=== PATIENT | female | born 1945 | race Caucasian/White ===

== ENCOUNTER → 2016-10-27 | Outpatient (CLI) | payer MEDICARE, MEDICAID ==
[~2016-10-27] MED LIST: ALEN10TA2 PO; CRES5TAB PO; DICL13PA TD; DIPH1POW6 XX; METH750T PO; MULTCAP PO; MURO5OIN OU; NEXI40CA PO; REFR1DRO OU; TRIA1CR TOP; WELLTAB38 PO
== END ==
LOC: M HL 10:46
PROVIDERS: ATTEND Hospitalist
DX: R63.6 Underweight (principal); F41.9 Anxiety disorder, unspecified

== ENCOUNTER → 2016-11-09 | Outpatient (CLI) | payer MEDICARE, MEDICAID ==
[~2016-11-09] MED LIST changes: +D5W 1,000 ML IV SCH; +D5W 500 ML ONE; +EPINEPHrine 1MG/10ML SYRINGE 1.5IN As Ordered ONE; +LIDOCAINE 1% MDV 20ML VIAL As Ordered ONE; +LIDOCAINE VISCOUS 2% SOLN 15ML UDC As Ordered ONE; +LR 1,000 ML IV SCH; +MIDAZOLAM INJ 2 MG/2 ML VIAL (J2250) As Ordered ONE; +fentaNYL 100 MCG/2 ML INJECTION (J3010) As Ordered ONE
[2016-11-09 09:50] VITALS: BP 103/63
--- NOTE | 2016-11-09 10:04 | RO ---
DATE OF PROCEDURE: 11/09/2016 PREOPERATIVE DIAGNOSIS: Abnormal CT scan with left lower lobe and right middle lobe abnormalities. POSTOPERATIVE DIAGNOSIS: Abnormal CT scan with left lower lobe and right middle lobe abnormalities, with chronic bronchitis. PROCEDURE: Fiberoptic bronchoscopy with washes and photos. SURGEON: Dr. Karson Maria LITHARGE SUPERVISOR: ANESTHESIA: Conscious sedation with 50 mcg of intravenous of fentanyl and 3 mg of intravenous Versed given sequentially and titrated for effect. Local anesthesia was 2% viscous Xylocaine in the nose, Cetacaine [place] in the pharynx and 1% Xylocaine via the bronchoscope. OPERATIVE FINDINGS: 1. Diffuse changes of chronic bronchitis. 2. Thick tenacious secretions encountered, able to be suctioned clear. 3. Extrinsic compression of the medial segment of the right middle lobe. 4. Extrinsic compression of multiple sub segments left lower lobe. Informed consent was obtained prior to the procedure. PROCEDURE: After the patient identified and the above anesthesia given, the fiberoptic bronchoscope was easily passed via the right nares. Hypopharynx was entered and appeared grossly normal. Thick tenacious secretions were seen to emanate from below the level of the cords. Vocal cords moved well. Trachea was then entered. It widely patent. Perla was sharp and moved well. Both mainstem bronchi widely patent. Right lung entered first. Right mainstem as well as the right upper lobe and bronchus intermedius widely patent. Diffuse changes of chronic bronchitis were noted. The middle lobe had thick tenacious secretions emanated from it. These were able to be suctioned clear. 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 With saline lavage it did open. Thick tenacious secretions were encountered and these were able to be cleared. Attention was then turned to the left. Left mainstem, upper lobe, bronchi widely patent. Again, diffuse changes of chronic bronchitis were noted. Some thick secretions were encountered but easily suctioned clear. The superior segment had a mild fishmouth but easily opened. Multiple sub segments of the lower lobe however, showed extrinsic compression. The mucosa was smooth. These areas did open easily with saline lavage and thick secretions were encountered from them. No obvious focal endobronchial abnormality was identified lending itself to either brush or biopsy. No bleeding was encountered. The scope was then withdrawn and the procedure terminated. Patient taken to recovery area in good and stable condition. Oxygen saturation remained greater than 97% throughout the exam. No immediate complications of conscious sedation were identified.
== END | disposition home or self-care (01) ==
LOC: M OPP 07:56
PROVIDERS: ATTEND Internal Medicine Pulmonary Disease
DX: J42 Unspecified chronic bronchitis (principal); J98.4 Other disorders of lung; J44.9 Chronic obstructive pulmonary disease, unspecified; F17.218 Nicotine dependence, cigarettes, with other nicotine-induced disorders; M19.90 Unspecified osteoarthritis, unspecified site
CPT/HCPCS: 31622; 87070; 87077; 87102; 87116; 87186; 87205; 87206; 88104; J2250; J3010

== ENCOUNTER → 2016-11-16 | Outpatient (REF) | payer MEDICARE, MEDICAID ==
[~2016-11-16] MED LIST changes: -D5W 1,000 ML IV SCH; -D5W 500 ML ONE; -EPINEPHrine 1MG/10ML SYRINGE 1.5IN As Ordered ONE; -LIDOCAINE 1% MDV 20ML VIAL As Ordered ONE; -LIDOCAINE VISCOUS 2% SOLN 15ML UDC As Ordered ONE; -LR 1,000 ML IV SCH; -MIDAZOLAM INJ 2 MG/2 ML VIAL (J2250) As Ordered ONE; -fentaNYL 100 MCG/2 ML INJECTION (J3010) As Ordered ONE
[2016-11-16 19:07] LABS: INR 0.95
== END ==
LOC: M LAB REF 16:50
PROVIDERS: ATTEND Internal Medicine Pulmonary Disease
DX: R91.8 Other nonspecific abnormal finding of lung field (principal); Z79.899 Other long term (current) drug therapy

== ENCOUNTER → 2016-11-29 | Outpatient (CLI) | payer MEDICARE, MEDICAID ==
[~2016-11-29] MED LIST changes: +LIDOCAINE 1% MDV 20ML VIAL As Ordered ONE
--- NOTE | 2016-11-29 12:03 | REP ---
PA CHEST: 11/29/2016. Clinical history: Post lung biopsy. Comparison: CT chest 09/18/2016, CXR 08/26/2016. Findings: An expiratory PA chest performed. Lungs are quite hyperinflated. The retrocardiac left lower lobe mass is noted as on previous exams. Chronic atelectatic or infiltrative change in the right middle lobe and less patchy density in the right upper lobe compared to the previous chest x-ray. I do not see evidence of a pneumothorax or pleural effusion on either side. The advanced bullous emphysematous change, COPD and pulmonary hypertension are as before. Degree of fibrosis as before. Impression: 1. No pneumothorax or pleural effusion. All findings are stable. Signed by Manuel Warren MD 11/29/2016 08:19 P
--- NOTE | 2016-11-29 17:28 | REP ---
CT GUIDED LEFT LOWER LOBE LUNG BIOPSY: The procedure was performed under the direct supervision of Dr. Warren. The patient has a history of a mass like density extending medially to the left paratracheal zone measuring 4.2 cm seen on a previous CT scan performed on 09/18/2016. The risks and benefits of the procedure were explained to the patient and informed consent was obtained. The left lower lobe lung mass was localized using CT guidance. The skin was prepped and draped in a sterile fashion. 1% lidocaine was used as a local anesthetic. Using CT guidance a 19/20-gauge coaxial needle biopsy system was inserted and advanced into the mass. Four core biopsy samples were obtained and sent to the lab. The patient tolerated the procedure well and there were no immediate complications. After the appropriate amount of monitored convalescence the patient was discharged from the department. Reviewed by CHRISTIANO Klein 11/30/2016 04:47 PEdited and Signed by Manuel Warren MD 11/30/2016 05:19 P
== END | disposition home or self-care (01) ==
LOC: M RADPRO 08:07
PROVIDERS: ATTEND Internal Medicine Pulmonary Disease
DX: C34.32 Malignant neoplasm of lower lobe, left bronchus or lung (principal); J44.9 Chronic obstructive pulmonary disease, unspecified; M19.90 Unspecified osteoarthritis, unspecified site; R63.4 Abnormal weight loss; F17.218 Nicotine dependence, cigarettes, with other nicotine-induced disorders; Z79.899 Other long term (current) drug therapy

== ENCOUNTER → 2016-12-06 | Outpatient (CLI) | payer MEDICARE, MEDICAID ==
[~2016-12-06] MED LIST changes: -LIDOCAINE 1% MDV 20ML VIAL As Ordered ONE
--- NOTE | 2016-12-07 09:13 | REP ---
PET/CT: History: Staging moderate to well differentiated adenocarcinoma of the lung , left lower lobe. Comparisons: Chest CT study dated September 18, 2016. TECHNIQUE: 73 minutes following the intravenous injection of a 7.0 mCi dose of F-18 FDG, three-dimensional PET scintigraphy is acquired from the skull base to the proximal thighs. Triplanar noncontrast CT scanning is acquired through the same anatomic range for attenuation correction, and image registration with scan parameters optimized to minimize radiation exposure to the patient. PET scintigraphy and CT datasets were fused and displayed on a workstation with multiplanar and projection display capability. PET/CT Findings: The known lobulated mass associated with bullous or air cyst formation in the left lower lobe shows heterogeneous hypermetabolic uptake. Maximum standard uptake value within this heterogeneous mass is 20.0. Some of the soft tissue components of the lesion are only mildly hypermetabolic, maximum SUV in the range of 3-3.6. The overall dimensions of the lesion are 6.3 cm craniocaudad by 5.1 cm anterior to posterior by 4.5 cm medial to lateral. There is no hilar or mediastinal hypermetabolic abnormal uptake. There is atelectasis which appears to be lobar within the right middle lobe. This is unchanged. No hypermetabolic uptake is seen in the right hilus. No adrenal hypermetabolic uptake is observed. No other pulmonary parenchymal hypermetabolic uptake. There is discernible but non-hypermetabolic uptake in an ill-defined peripheral density in the right upper lobe with maximum SUV value of 1.0. This density is improved in appearance from the September 18, 2016 study. No abnormal hypermetabolic uptake is seen within the abdomen or pelvis. Head and neck soft tissues are unremarkable. Impression: Heterogeneously hypermetabolic uptake in the large lobulated left lower lobe lung mass. No other abnormal hypermetabolic uptake is seen. Signed by Adeel Morgan MD 12/07/2016 10:13 A
== END ==
LOC: M RAD 12:22
PROVIDERS: ATTEND Internal Medicine Pulmonary Disease
DX: C34.31 Malignant neoplasm of lower lobe, right bronchus or lung (principal)
CPT/HCPCS: 78815; A9552

== ENCOUNTER → 2016-12-19 | Outpatient (CLI) | payer MEDICARE, MEDICAID ==
--- NOTE | 2016-12-20 07:31 | RADONC ---
RADIATION ONCOLOGY CONSULTATION NOTE DATE: 12/19/2016 CHART NUMBER: [id number]. DIAGNOSIS: Left lung cancer. STAGE: IIA, [id number]. ECOG PERFORMANCE STATUS: 1. CONSULTATION NOTE: Ms. 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 HISTORY OF PRESENT ILLNESS: The patient was in her usual state of health and has a long history of COPD. Apparently, she has developed some increasing shortness of breath and a CT was done on 09/18/2016, which showed a mass-like density in the left paratracheal zone measuring 4.2 cm. On 11/29/2016, a CT-guided biopsy was undertaken and pathology revealed a well-differentiated adenocarcinoma of the lung. PET scan was done on 12/06/2016 and confirmed hypermetabolic uptake in her left lower lobe mass. There was no evidence of mediastinal hilar adenopathy present. Pulmonary functions were undertaken and she was found to have an FEV-1 of 1.06. Her diffusion capacity was 32%. The patient was deemed not to be a surgical candidate and is now presenting to us to see whether or not external beam radiation therapy will be possible. PAST MEDICAL HISTORY: The patient's past medical history is positive for COPD, emphysema, some seizure-like activity, cataracts, and arthritis. ALLERGIES: The patient has no known drug allergies. SOCIAL HISTORY: The patient has smoked half-a-pack of cigarettes per day for 48 years. She does not abuse alcohol. FAMILY HISTORY: The patient's family history is positive for a sister with uterine cancer. REVIEW OF SYSTEMS: The patient's review of systems is positive for anorexia and weight loss. She has some anxiety and physical limitations secondary weakness. She also has occasional chills. The patient reports that she had a left hip replacement. She has some left rib pain since the biopsy. She denies nausea, vomiting, fevers, night sweats, diplopia, headaches, chest pain, urinary or bowel difficulties, or neurological problems. PHYSICAL EXAMINATION: The patient is a cachectic, chronically ill-appearing white female in no acute distress. HEENT exam is normocephalic, atraumatic. Extraocular movements are intact. There is no palpable cervical, supraclavicular, infraclavicular, axillary, or inguinal lymphadenopathy present. Lungs are clear to auscultation and percussion. Heart has a regular rate and rhythm. Abdomen is benign with no hepatosplenomegaly, masses, or tenderness. Skeletal examination reveals no tenderness to pressure or percussion of the bony skeleton. Extremities reveal no clubbing, cyanosis, or edema. Neurologic exam is grossly intact, as is the remainder of the physical examination. ASSESSMENT: I agree that this patient would not be a candidate for surgery at this point. I have personally reviewed with the patient her PET CT scan. I believe it may be possible to design a radiation field that she may tolerate. I discussed with the patient in detail the potential benefits as well as possible acute and chronic sequelae of external beam radiation therapy. We have discussed logistics of treatment planning, simulation and subsequent fractionated daily radiation treatments. I am scheduling the patient for a differential lung scan for further evaluation of her ability to tolerate treatment. At this point, I cannot make final recommendations as I do not know whether or not she will be able to tolerate these treatments. I have scheduled the patient for a differential lung scan as well as initiation of treatment planning. Once we undertake treatment planning, a dose volume histogram can be generatedm, which will allow us to further analyze her breathing capacity and what can be anticipated as her breathing capacity following completion of therapy. Further recommendations will be made as more information becomes available. I will also coordinate this patient's care with her medical oncologist, Dr. Ramos. Clearly, if we to deliver definitive radiation, she may benefit from some type of systemic treatment. I will of course defer to Dr. Ramos's expertise. cc: MD Monroe Acevedo MD Lawrence Kramer, MD *[facility]
== END ==
LOC: M ONCR 09:05
PROVIDERS: ATTEND Radiology Radiation Oncology
DX: C34.90 Malignant neoplasm of unspecified part of unspecified bronchus or lung (principal)

== ENCOUNTER → 2016-12-25 | Outpatient (CLI) | payer MEDICARE, MEDICAID ==
--- NOTE | 2016-12-25 11:02 | REP ---
CHEST, TWO VIEWS: HISTORY: Lung carcinoma. COMPARISON: 11/29/2016. The lungs are hyperinflated. An increase in interstitial markings is present in the lungs. Bullae are present in upper lobes. A 5 cm mass is present in the left lower lobe. Linear density is present in the right middle lobe consistent with atelectasis or scar. The heart is normal in size. The pulmonary vasculature is normal in appearance. The bony structure is intact. IMPRESSION: 1.COPD 2. 5 cm left lower lobe mass. 3. Right middle lobe atelectasis or scar. Signed by Winston Connolly MD 12/25/2016 11:03 A
--- NOTE | 2016-12-25 11:25 | REP ---
NUCLEAR LUNG DIFFERENTIAL VENTILATION PERFUSION SCAN: Following the intravenous administration of 1 mCi of technetium 99m tagged MAA and the inhalation of 2 mCi of technetium 99m DTPA aerosol, images of the lungs are obtained in the anterior and posterior projections. There are scattered bilateral subsegmental matching ventilation and perfusion defects. Differential counts are obtained in the upper, middle and lower thirds of each lung and the mean perfusion and ventilation is calculated. The mean perfusion of the left lung is 47.7% and of the right lung is 52.3%. Mean ventilation of the left lung is 44.6% and of right lung 55.4%. Signed by Jose Yang MD 12/25/2016 12:58 P
== END ==
LOC: M RAD 09:45
PROVIDERS: ATTEND Radiology Radiation Oncology
DX: C34.90 Malignant neoplasm of unspecified part of unspecified bronchus or lung (principal)
CPT/HCPCS: 71020; 78598; A9540; A9567

== ENCOUNTER 2016-12-27 10:28 | Outpatient (RCR) | payer MEDICARE, MEDICAID ==
--- NOTE | 2016-12-28 07:44 | RADONC ---
RADIATION ONCOLOGY SIMULATION NOTE: DATE: 12/27/2016 Ms. Devlin was taken to the CT scan for CT simulation of her left lung field. CT was accomplished without difficulty or discomfort. Radiation treatment planning is underway and radiation treatments will begin subsequently. An immobilization device was created without difficulty or discomfort. It will be used throughout the course of treatment. I was physically present throughout the course of CT simulation.
== END 2017-01-05 ==
LOC: M ONCR 10:28
PROVIDERS: ATTEND Radiology Radiation Oncology
DX: C34.32 Malignant neoplasm of lower lobe, left bronchus or lung (principal)

== ENCOUNTER → 2016-12-27 | Outpatient (CLI) | payer MEDICARE, MEDICAID | LOC: M RAD 09:42 | PROVIDERS: ATTEND Radiology Radiation Oncology | DX: C34.90 Malignant neoplasm of unspecified part of unspecified bronchus or lung (principal) ==

== ENCOUNTER 2017-01-08 09:08 | Outpatient (RCR) | payer MEDICARE, MEDICAID ==
--- NOTE | 2017-01-09 09:07 | RADONC ---
RADIATION ONCOLOGY PROGRESS NOTE DATE: 01/08/2017 CHART NUMBER: [id number] Ms. Devlin was scheduled to initiate radiation today. Unfortunately we were unable to start her treatments today secondary to machine breakdown. Radiation is scheduled to begin tomorrow.
[2017-01-11] MEDS ORDERED: OXYC1TAB23 PO (16:40)
--- NOTE | 2017-01-16 07:26 | RADONC ---
RADIATION ONCOLOGY PROGRESS NOTE DATE: 01/15/2017 CHART NUMBER: [id number] Ms. Devlin is presently at a dose of 900 cGy to her left lung and is tolerating treatments quite well at this point with no complaints related to her radiation therapy. She is having no increased difficulty swallowing. She does have some loss of appetite since she was given pain medication last week. The patient's review of systems is positive for loss of appetite as well as some discomfort controlled by pain medications. It is otherwise noncontributory. Denies nausea, vomiting, fevers, chills, night sweats, diplopia, headaches, anxiety or depression, anorexia, weight loss, visual disturbances, chest pain, urinary or bowel difficulties, bone pain, or neurological problems. PHYSICAL EXAMINATION: The patient is a cachectic, chronically ill-appearing, white female in no acute distress. Skin over the treated field is in excellent condition with no evidence of radiation change present. The remainder of her physical exam remains unchanged. Ms. Devlin is tolerating treatments quite well and radiation will continue as scheduled. She has been given dietary instructions. [facility]
--- NOTE | 2017-01-23 07:26 | RADONC ---
RADIATION ONCOLOGY PROGRESS NOTE DATE: 01/22/2017 CHART NUMBER: [id number]. PROGRESS NOTE: Ms. Devlin is presently at a dose of 1800 cGy to her left lung and overall is doing fairly well. She is continuing to complain of pain over her biopsy site for which I have given her a prescription of Percocet. She also has difficulty swallowing. REVIEW OF SYSTEMS: The patient's review of systems is positive for discomfort upon swallowing as well as some pain of her ribs. It is otherwise noncontributory. Denies nausea, vomiting, fevers, chills, night sweats, diplopia, headaches, anxiety or depression, anorexia, weight loss, visual disturbances, chest pain, urinary or bowel difficulties, bone pain, or neurological problems. PHYSICAL EXAMINATION: The patient's weight today is down to 85.6 pounds. It is down 1.3 pounds since last week. It is down a total of 2.4 pounds since consultation on 12/19/2016. The skin over the treated field is in good condition with no evidence of moist or dry desquamation. The remainder of the physical exam remains unchanged. Ms. Devlin is tolerating her treatments at this point. We are calling in a prescription for Triple Mix. Radiation will continue in the meantime.
--- NOTE | 2017-01-30 08:47 | RADONC ---
RADIATION ONCOLOGY PROGRESS NOTE DATE: 01/29/2017 CHART NUMBER: [id number] Ms. Devlin is presently just 2700 cGy to her left lung and is tolerating treatments quite well at this point with no complaints related to her radiation therapy. She is having no increased difficulty breathing or swallowing. REVIEW OF SYSTEMS: The patient's review of systems continues to be positive for pain at the site of her needle biopsy. She has no complaints at this time related to her actual radiation. She denies nausea, vomiting, fevers, chills, night sweats, diplopia, headaches, anxiety or depression, anorexia, weight loss, visual disturbances, chest pain, urinary or bowel difficulties, bone pain, or neurological problems. PHYSICAL EXAMINATION: The patient's skin is in good condition with no evidence of moist or dry desquamation. The remainder of her physical exam remains unchanged. Ms. Devlin is tolerating treatments quite well and radiation will continue as scheduled.
== END 2017-02-04 ==
LOC: M ONCR 09:08
PROVIDERS: ATTEND Radiology Radiation Oncology
DX: C34.32 Malignant neoplasm of lower lobe, left bronchus or lung (principal)

== ENCOUNTER → 2017-01-18 | Outpatient (CLI) | payer MEDICARE, MEDICAID ==
[~2017-01-18] MED LIST changes: +OXYC1TAB23 PO
--- NOTE | 2017-01-18 16:23 | REP ---
PA and lateral chest: Comparisons are the PA and lateral chest of 12/25/2016, PA and lateral chest 08/26/2016 and PA and lateral chest of 10/10/2010. Additionally, there is a comparison chest CT of 09/18/2016. The lung lester are hyperinflated with slight inversion of the diaphragms, unchanged from all prior studies, compatible with COPD, however, requiring clinical confirmation. The patient's known left lower lobe lung mass is seen to best advantage on the lateral view and is not significantly changed from 12/25/2016. On the lateral view there is atelectasis anteriorly superimposed over the heart, likely in the right middle lobe, unchanged from 12/25/2016. On the PA view, there appears to be a focal density inferiorly in the right lung, also unchanged from 12/25/2016. There are no pleural effusions. There are no other lung densities. Cardiac size is normal. The kaleigh, mediastinum, bony thorax are otherwise unchanged. Impression: The patient has a known left lower lobe lung mass, unchanged. Increased density inferiorly in the right lung, this could be a mass or atelectasis. On the lateral view there is atelectasis anteriorly likely in the right middle lobe. No other infiltrates are identified. No pleural effusions. There is chronic hyperinflation compatible with COPD. Signed by Jose Em MD 01/18/2017 04:14 P
== END ==
LOC: M RAD 14:23
PROVIDERS: ATTEND Internal Medicine Pulmonary Disease
DX: R06.02 Shortness of breath (principal); R91.8 Other nonspecific abnormal finding of lung field; J44.9 Chronic obstructive pulmonary disease, unspecified

== ENCOUNTER 2017-02-05 11:03 | Outpatient (RCR) | payer MEDICARE, MEDICAID ==
--- NOTE | 2017-02-06 10:05 | RADONC ---
RADIATION ONCOLOGY PROGRESS NOTE DATE: 02/05/2017 CHART NUMBER: [id number] Ms. Devlin is presently at a dose of 3420 cGy to her left lung and is tolerating treatments quite well at this point with no significant difficulties related to her radiation therapy other than some esophagitis. REVIEW OF SYSTEMS: The patient's review of systems is positive for esophagitis, but is otherwise noncontributory. She denies nausea, vomiting, fevers, chills, night sweats, diplopia, headaches, anxiety or depression, anorexia, weight loss, visual disturbances, chest pain, urinary or bowel difficulties, bone pain, or neurological problems. PHYSICAL EXAMINATION: The patient has lost an additional 3.8 pounds over the past week or so. She weighs 84 pounds. This is actually 1.6 pounds less than she was 2 weeks ago. Her skin is in good condition with no evidence of moist or dry desquamation. The remainder of her physical exam remains unchanged. Ms. Devlin is tolerating her treatments fairly well and once again has been given dietary instructions. For now radiation will continue as scheduled.
--- NOTE | 2017-02-13 07:35 | RADONC ---
RADIATION ONCOLOGY PROGRESS NOTE DATE: 02/12/2017 CHART NUMBER: [id number] Ms. Devlin is presently at a dose of 4320 cGy to her left lung and is tolerating treatments quite well at this point with no complaints related to her radiation therapy. She is having no increased difficulty swallowing or shortness of breath. REVIEW OF SYSTEMS: The patient's review of systems is noncontributory. Denies nausea, vomiting, fevers, chills, night sweats, diplopia, headaches, anxiety or depression, anorexia, weight loss, visual disturbances, chest pain, urinary or bowel difficulties, bone pain, or neurological problems. PHYSICAL EXAMINATION: The patient's skin is in good condition with no evidence of moist or dry desquamation. The remainder of physical exam remains unchanged. Ms. Devlin is tolerating treatments quite well and radiation will continue as scheduled.
--- NOTE | 2017-02-20 08:47 | RADONC ---
RADIATION ONCOLOGY PROGRESS NOTE DATE: 02/19/2017 CHART NUMBER: [id number]. PROGRESS NOTE: Ms. Devlin is presently at a dose of 5220 cGy to her left lung and is tolerating treatments quite well at this point with no significant difficulties related to her radiation therapy other than some itching of the skin. REVIEW OF SYSTEMS: The patient's review of systems is positive for skin itchiness but is otherwise noncontributory. Denies nausea, vomiting, fevers, chills, night sweats, diplopia, headaches, anxiety or depression, anorexia, weight loss, visual disturbances, chest pain, urinary or bowel difficulties, bone pain, or neurological problems. PHYSICAL EXAMINATION: The patient skin overall is in good condition but there is a small area of excoriation where the patient has been scratching. The remainder of the physical exam remains unchanged. Ms. Devlin is tolerating treatments quite well. I have instructed her to try some Benadryl cream and to cut her nails shorter and not to scratch. She has also been given some skin covering this. I informed her that is she were to continue scratching like this it may cause an interruption of her treatment.
--- NOTE | 2017-02-27 06:13 | RADONC ---
RADIATION ONCOLOGY PROGRESS NOTE DATE: 02/26/2017 CHART NUMBER: [id number] Ms. Devlin is presently at a dose of 6120 cGy to her left lung and is tolerating treatments quite well at this point with no significant difficulties related to her radiation therapy other than esophagitis and difficulty swallowing. The patient's review of systems is positive for esophagitis but is otherwise largely noncontributory. Denies nausea, vomiting, fevers, chills, night sweats, diplopia, headaches, anxiety or depression, anorexia, weight loss, visual disturbances, chest pain, urinary or bowel difficulties, bone pain, or neurological problems. PHYSICAL EXAMINATION: The patient is a cachectic white female in no acute distress. HEENT: Exam is normocephalic, atraumatic. Extraocular movements are intact. The skin over the treated field shows no evidence of moist or dry desquamation. The remainder of her physical exam remains unchanged. Ms. Devlin is tolerating treatments quite well and radiation will continue as scheduled.
[2017-02-28] MEDS ORDERED: SILV-4 TOP (16:36)
--- NOTE | 2017-03-06 09:59 | RADONC ---
RADIATION ONCOLOGY TREATMENT SUMMARY DATE: 03/06/2017 CHART NUMBER: [id number] DIAGNOSIS: Left lung cancer stage II A, [id number], ECOG performance status 1. TREATMENT SUMMARY: Ms. Devlin is a very pleasant 71-year-old white female with a diagnosis of what appears to be a stage II A, [id number] well-differentiated adenocarcinoma of the left lower lobe who presented to us for consideration of definitive external beam radiation therapy as a therapeutic option. The patient refused chemotherapy. We treated the patient to her primary site for a total dose of 6840 cGy delivered in 38 fractions of 180 cGy each via a 3-D conformal technique with a left lateral ROMANIAN and LPO field. The patient was treated from 01/09/2017 through 01/31/2017 for 38 fractions over 52 elapsed days. A combination of 18 X and 6 X photons were utilized. Ms. Devlin tolerated her treatments quite well with no significant difficulties related to her radiation therapy. The patient was able complete therapy as prescribed. I have scheduled the patient to see me again in 1 month for further followup. She will also continue to be followed by her other physicians as well. cc: MD Monroe Acevedo MD Lawrence Kramer, MD *Muna Prater MD *[facility]
== END 2017-03-07 ==
LOC: M ONCR 11:03
PROVIDERS: ATTEND Radiology Radiation Oncology
DX: C34.32 Malignant neoplasm of lower lobe, left bronchus or lung (principal)

== ENCOUNTER → 2017-04-04 | Outpatient (CLI) | payer MEDICARE, MEDICAID ==
[~2017-04-04] MED LIST changes: +FLUC10TA PO; +SILV-4 TOP
--- NOTE | 2017-04-05 10:34 | RADONC ---
RADIATION ONCOLOGY PROGRESS NOTE: DATE: 04/04/2017 CHART NUMBER: [id number]. DIAGNOSIS: Left lung cancer. STAGE: IIA, S0cL2G6. ECOG PERFORMANCE STATUS: Zero. FOLLOWUP NOTE: Ms. 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 The patient presents today reporting that she is doing quite well with no significant complaints at this time related to her radiation therapy or disease. She has no increased difficulty breathing or swallowing. REVIEW OF SYSTEMS: The patient's review of systems is largely noncontributory. Denies nausea, vomiting, fevers, chills, night sweats, diplopia, headaches, anxiety or depression, anorexia, weight loss, visual disturbances, chest pain, urinary or bowel difficulties, bone pain, or neurological problems. PHYSICAL EXAMINATION: The patient is a well-developed, well-nourished, 71-year-old white female in no acute distress. HEENT exam is normocephalic, atraumatic. Extraocular movements are intact. There is no palpable cervical, supraclavicular, infraclavicular, axillary, or inguinal lymphadenopathy present. Lungs are clear to auscultation and percussion. Heart has a regular rate and rhythm. Abdomen is benign with no hepatosplenomegaly, masses, or tenderness. Skeletal examination reveals no tenderness to pressure or percussion of the bony skeleton. Extremities reveal no clubbing, cyanosis, or edema. Neurologic exam is grossly intact, as is the remainder of the physical examination. ASSESSMENT: Ms. Devlin is clinically stable at this time. She is being seen by Dr. Prater in [place], as well as Dr. Maria. I have therefore scheduled her to see me again in 3 months' time. I have ordered a head CT scan to be done in early May post-treatment to reevaluate her for present state of disease.
== END ==
LOC: M ONCR 14:56
PROVIDERS: ATTEND Radiology Radiation Oncology
DX: C34.32 Malignant neoplasm of lower lobe, left bronchus or lung (principal)

== ENCOUNTER → 2017-05-08 | Outpatient (CLI) | payer MEDICARE, MEDICAID | LOC: M PLARAD 09:20 | PROVIDERS: ATTEND Radiology Radiation Oncology | DX: C34.90 Malignant neoplasm of unspecified part of unspecified bronchus or lung (principal); Z53.9 Procedure and treatment not carried out, unspecified reason ==

== ENCOUNTER → 2017-05-16 | Outpatient (CLI) | payer MEDICARE, MEDICAID ==
--- NOTE | 2017-05-16 17:35 | REP ---
Whole body PET CT scan: Comparison is the whole body PET CT scan dated 12/06/2016 and the most recent CT study of the chest dated 09/18/2016. Whole-body scanning is performed from skull base to the upper thighs. Neck and supraclavicular areas: There are no hypermetabolic foci. Chest: There is a small hypermetabolic focus in the medial basilar segment of the left lower lobe approximately 1 cm in diameter with a standard uptake value of 7.25. Just posterior and inferior to this is a second 1 cm hypermetabolic nodule with a standard uptake value of 3.5. There is non hypermetabolic stranding connecting these two nodules and extending from the superior most nodule to the left hilus, likely fibrosis. The size of these lesions has significantly decreased from the prior study. There are no other hypermetabolic foci in the chest. Abdomen, pelvis and upper thighs: There are no hypermetabolic foci, as previously. Impression: The hypermetabolic foci in the lower lobe of the left lung have decreased in size. There are no other hypermetabolic foci. The study is performed with 10 mCi of F 18 FDG. Signed by Jose Em MD 05/16/2017 05:27 P
== END ==
LOC: M PLARAD 08:47
PROVIDERS: ATTEND Radiology Radiation Oncology
DX: C34.32 Malignant neoplasm of lower lobe, left bronchus or lung (principal)
CPT/HCPCS: 78815; A9552

== ENCOUNTER → 2017-05-28 | Outpatient (CLI) | payer MEDICARE, MEDICAID ==
--- NOTE | 2017-05-28 16:00 | REP ---
Chest x-ray: Two views: History: Short of breath. Comparison chest x-ray: 01/18/2017. Findings: The lungs are hyperinflated consistent with COPD. The irregular density in the left infrahilar region is again noted. It looks somewhat less prominent than on the 01/18/2017. This is consistent with improvement. No pneumothorax is seen. No new infiltrate is seen. Impression: Left lower lobe infrahilar mass lesion appears improved. Signed by Adeel Morgan MD 05/28/2017 05:11 P
== END ==
LOC: M RAD 14:15
PROVIDERS: ATTEND Radiology Radiation Oncology
DX: R06.02 Shortness of breath (principal); R91.8 Other nonspecific abnormal finding of lung field

== ENCOUNTER → 2017-06-06 | Outpatient (REF) | payer MEDICARE, MEDICAID ==
[2017-06-06 15:19] LABS: ANION GAP 7 MEQ/L (8-16); BLOOD UREA NITROGEN 9 MG/DL (7-18); CALCIUM LEVEL 9.5 MG/DL (8.8-10.2); CARBON DIOXIDE LEVEL 33 MEQ/L (21-32); CHLORIDE LEVEL 99 MEQ/L (98-107); CREATININE FOR GFR 0.66 MG/DL (0.55-1.02); GLOMERULAR FILTRATION RATE > 60.0 (>45); GLUCOSE, FASTING 159 MG/DL (80-110); POTASSIUM SERUM 3.9 MEQ/L (3.5-5.1); SODIUM LEVEL 139 MEQ/L (136-145)
== END ==
LOC: M SFHCPLAZ 13:57
PROVIDERS: ATTEND Family Medicine
DX: M54.2 Cervicalgia (principal)

== ENCOUNTER → 2017-06-13 | Outpatient (CLI) | payer MEDICARE, MEDICAID ==
--- NOTE | 2017-06-15 11:13 | RADONC ---
RADIATION ONCOLOGY FOLLOWUP NOTE DATE OF SERVICE: 06/13/2017 CHART NUMBER [id number] DIAGNOSIS: Left lung cancer. STAGE: IIA, G4oA2L3. ECOG PERFORMANCE STATUS: 0. FOLLOWUP NOTE: Ms. 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 Since the patient's last visit, she was seen by Dr. Maria for evaluation of her breathing. He thought it unnecessary for the patient to have oxygen at this point. The patient reports today that she is breathing somewhat better. She overall has gained 2 pounds and feels somewhat better. She continues to have pain, however over her right lateral ribs which she says can be quite severe at times. This has not improved. She also continues to have difficulty swallowing saying that this has not improved either and that food seems to get stuck in the mid esophageal region. She has no other complaints related to her radiation therapy or disease. The patient's review of systems is positive for difficulty swallowing most foods as well as continued rib pain. She does have continued shortness of breath. The patient's review of systems is otherwise noncontributory. She denies nausea, vomiting, fevers, chills, night sweats, diplopia, headaches, anxiety or depression, anorexia, weight loss, visual disturbances, chest pain, urinary or bowel difficulties, bone pain, or neurological problems. PHYSICAL EXAMINATION: The patient is a cachectic, chronically ill-appearing white female in no acute distress. HEENT: Exam is normocephalic, atraumatic. Extraocular movements are intact. There is no palpable cervical, supraclavicular, infraclavicular, axillary or inguinal lymphadenopathy present. Her lungs are generally clear to auscultation and percussion. Heart has regular rate and rhythm. Her abdomen is benign with no hepatosplenomegaly, masses or tenderness. ASSESSMENT: I have ordered a bone scan to evaluate the patient's ribs. In addition, I have scheduled her for an appointment at the pain clinic. Perhaps they can be of some help to her. I have set her up to see me again in 2 months for further followup as well. In addition, I am sending in a prescription for Diflucan in case her difficulty swallowing is secondary to thrush. I do not appreciate thrush on the patient's oral cavity examination. She will continue her close followup and management by her other physicians in the meantime. cc: Atiya Ramos MD, FACP MD Karson Rollins MD
== END ==
LOC: M ONCR 13:08
PROVIDERS: ATTEND Radiology Radiation Oncology
DX: C34.32 Malignant neoplasm of lower lobe, left bronchus or lung (principal)

== ENCOUNTER → 2017-06-19 | Outpatient (CLI) | payer MEDICARE, MEDICAID ==
--- NOTE | 2017-06-19 15:08 | REP ---
Whole body radionuclide bone scan: Comparison is the three-phase bone scan of the hips performed on 12/12/2012. Whole-body scanning is performed from the calvarium to the feet. There is normal uptake in the calvarium, shoulders, ribs and upper extremities. There is increased uptake in two thoracic vertebral bodies at the approximate T8 and T10 levels. Upon review of the most recent PA and lateral plain film study of the chest, there are no thoracic vertebral body compression deformities. There is no other increased uptake in the spine. There is no abnormal uptake in the pelvis or lower extremities. It is incidentally noted that the right kidney is lower in the abdomen than the left, likely congenital variation. Impression: Focal increased uptake in two thoracic vertebral bodies, likely T8 and T10. There are no vertebral body compression deformities on the most recent plain film PA and lateral study of the chest dated 05/28/2017. Otherwise, negative radionuclide bone scan. The study is performed after intravenous infusion of 21.6 millicuries of MDP radiolabeled with technetium-99m Signed by Jose Em MD 06/19/2017 03:00 P
== END ==
LOC: M RAD 10:29
PROVIDERS: ATTEND Radiology Radiation Oncology
DX: R07.81 Pleurodynia (principal)
CPT/HCPCS: 78306; A9503

== ENCOUNTER → 2017-06-25 | Outpatient (CLI) | payer MEDICARE, MEDICAID ==
--- NOTE | 2017-06-25 14:53 | REP ---
MRI thoracic spine without and with IV gadolinium: History: History of mid back pain and rib pain. History of lung carcinoma. Comparison bone scan June 19, 2017. Comparison PET-CT study May 16, 2017. Gadolinium enhancement dose is 7.5 mL of intravenous ProHance. Technique: Axial and sagittal imaging planes were utilized. T1 and T2-weighted scans were obtained with and without fat saturation and following gadolinium enhancement. MRI findings: Evidence of osteoporotic collapse of the superior endplate of the T8 and the T10 vertebral bodies with linear low T1 low T2 signal intensity fracture line and surrounding low T1 high T2 marrow edema. Contrast enhancement is seen in the vertebral bodies at these two levels. There is approximately 10% loss of vertebral body height at each of these levels. No paravertebral soft-tissue mass is seen. No epidural disease is seen. No cord compression is seen. Thoracic cord is normal in coarse, caliber and signal intensity. There is no MR evidence to suggest skeletal metastatic disease in the thoracic spine. No thoracic disc herniation or neural foraminal lesion is seen. Impression: No cord compressive lesion is seen. Findings compatible with osteoporotic wedge compression fracture deformities at T8 and T10. No other abnormal gadolinium enhancement is seen. Signed by Adeel Morgan MD 06/25/2017 04:30 P
== END ==
LOC: M RAD 11:59
PROVIDERS: ATTEND Radiology Radiation Oncology
DX: R07.81 Pleurodynia (principal); Z85.118 Personal history of other malignant neoplasm of bronchus and lung
CPT/HCPCS: 72157; A9576

== ENCOUNTER → 2017-08-15 | Outpatient (CLI) | payer MEDICARE, MEDICAID ==
--- NOTE | 2017-08-17 16:38 | RADONC ---
RADIATION ONCOLOGY FOLLOWUP NOTE DATE: 08/15/2017 CHART NUMBER: [id number]. DIAGNOSIS: Left lung cancer. STAGE: IIA, X5wM0P6. ECOG PERFORMANCE STATUS: 1. FOLLOWUP NOTE: Ms. Devlin is a very pleasant, 71-year-old white female with the diagnosis of a stage IIA, T2bN0M well-differentiated adenocarcinoma of the left upper lobe who is presenting to us today for routine followup visit 5 months post completion of external beam radiation therapy. The patient presents today reporting that she continues to have shortness of breath. She is obtaining a walker with a seat to assist with her shortness of breath so that she can sit down. She also has continued right-sided rib pain. The previous pain was on the left side in the same area. We had done an MRI of that region on 06/25/2017, as well as a bone scan, and found that she had compression fracture deformities at T8 and T10. There is no evidence of malignancy, however. . The patient has a cough as well. She is scheduled to see her labor standards director, Dr. Maria, in 4 weeks or so as well as her medical oncologist, Dr. Gregory. She has no other complaints at this time related to her radiation therapy or disease. Her review of systems is negative for nausea, vomiting, fevers, chills, night sweats, diplopia, headaches, anxiety or depression, visual disturbances, urinary or bowel difficulties or neurological problems. PHYSICAL EXAMINATION: The patient is a cachectic, chronically ill-appearing white female who now weighs 81.6 pounds. This is actually down 3-1/2 pounds since her last visit in June. Her HEENT exam is normocephalic, atraumatic. Extraocular movements are intact. There is no palpable cervical, supraclavicular, infraclavicular or axillary lymphadenopathy present. Her lungs in general are clear to auscultation and percussion, with distant breath sounds bilaterally. Her heart has regular rate and rhythm. Her abdomen is benign with no hepatosplenomegaly, masses or tenderness. Skeletal examination reveals no tenderness to pressure percussion of the bony skeleton. ASSESSMENT: The patient looks clinically like she is not doing well. I am concerned with her overall weakness and continued weight loss. I have concerns also with her increasing shortness of breath. I have therefore ordered a new CT scan to be undertaken to evaluate where we are at this point. In addition, the patient has been given dietary instructions. Pending the results of her CT scan, further recommendations will be made as indicated. Once again, in the next few weeks she will seeing both her labor standards director and her medical oncologist. She reports that the labor standards director said that she does not require any oxygen at this point and I need to defer to his expertise. I am concerned, however that her limited breathing abilities is causing her difficulty walking for any extended distance without having to sit down. Once again, we will continue to follow this patient closely. I have ordered a new CT scan to be undertaken. She will also continue be followed by Dr. Gregory, her medical oncologist as well as Dr. Maria, her labor standards director. cc: MD Monroe Gurrola MD Lawrence Kramer, MD MTDD
== END ==
LOC: M ONCR 14:05
PROVIDERS: ATTEND Radiology Radiation Oncology
DX: C34.32 Malignant neoplasm of lower lobe, left bronchus or lung (principal)

== ENCOUNTER → 2017-08-20 | Outpatient (CLI) | payer MEDICARE, MEDICAID ==
[2017-08-20 14:31] LABS: BLOOD UREA NITROGEN 6 MG/DL (7-18); CREATININE FOR GFR 0.61 MG/DL (0.55-1.02); GLOMERULAR FILTRATION RATE > 60.0 (>45)
== END ==
LOC: M LAB 13:46
PROVIDERS: ATTEND Radiology Radiation Oncology
DX: C34.32 Malignant neoplasm of lower lobe, left bronchus or lung (principal)

== ENCOUNTER → 2017-08-22 | Outpatient (CLI) | payer MEDICARE, MEDICAID ==
[~2017-08-22] MED LIST changes: +ISOVUE-370 76% 100ML VIAL (Q9967) As Ordered ONE
== END ==
LOC: M RAD 15:35
PROVIDERS: ATTEND Radiology Radiation Oncology
DX: C34.90 Malignant neoplasm of unspecified part of unspecified bronchus or lung (principal)
CPT/HCPCS: 71260; Q9967

== ENCOUNTER → 2017-11-21 | Outpatient (CLI) | payer MEDICARE, MEDICAID ==
[2017-11-21 15:20] LABS: BLOOD UREA NITROGEN 7 MG/DL (7-18)
[2017-11-21 15:20] LABS: CREATININE FOR GFR 0.61 MG/DL (0.55-1.30); GLOMERULAR FILTRATION RATE > 60.0 (>45)
== END ==
LOC: M ONCR 13:25
DX: C34.32 Malignant neoplasm of lower lobe, left bronchus or lung (principal)
CPT/HCPCS: 82565

== ENCOUNTER → 2017-12-18 | Outpatient (CLI) | payer MEDICARE, MEDICAID ==
[~2017-12-18] MED LIST changes: -ALEN10TA2 PO; -CRES5TAB PO; -DICL13PA TD; -DIPH1POW6 XX; -FLUC10TA PO; +ISOVUE-370 76% 100ML VIAL (Q9967) As Ordered; -ISOVUE-370 76% 100ML VIAL (Q9967) As Ordered ONE; -METH750T PO; -MULTCAP PO; -MURO5OIN OU; -NEXI40CA PO; -OXYC1TAB23 PO; -REFR1DRO OU; -SILV-4 TOP; -TRIA1CR TOP; -WELLTAB38 PO
== END ==
LOC: M RAD 08:29
DX: J44.9 Chronic obstructive pulmonary disease, unspecified (principal); R93.7 Abnormal findings on diagnostic imaging of other parts of musculoskeletal system
CPT/HCPCS: Q9967

== ENCOUNTER → 2017-12-24 | Outpatient (CLI) | payer MEDICARE, MEDICAID ==
[~2017-12-24] MED LIST changes: -ISOVUE-370 76% 100ML VIAL (Q9967) As Ordered; +PROHANCE 279.3MG/ML 5ML VIAL (A9576) As Ordered
== END ==
LOC: M RAD 13:10
DX: C34.90 Malignant neoplasm of unspecified part of unspecified bronchus or lung (principal); G95.0 Syringomyelia and syringobulbia
CPT/HCPCS: A9576

== ENCOUNTER → 2017-12-26 | Outpatient (CLI) | payer MEDICARE, MEDICAID | LOC: M ONCR 13:04 | DX: C34.32 Malignant neoplasm of lower lobe, left bronchus or lung (principal) | CPT/HCPCS: G0463 ==

== ENCOUNTER → 2018-02-20 | Outpatient (CLI) | payer MEDICARE, MEDICAID | LOC: M ONCR 13:00 | DX: C34.32 Malignant neoplasm of lower lobe, left bronchus or lung (principal) | CPT/HCPCS: G0463 ==

== ENCOUNTER → 2018-05-01 | Outpatient (CLI) | payer MEDICARE, MEDICAID | LOC: M LRY 14:06 | DX: J98.4 Other disorders of lung (principal); R42 Dizziness and giddiness | CPT/HCPCS: 71046; 81002 ==

== ENCOUNTER → 2018-05-22 | Outpatient (CLI) | payer MEDICARE, MEDICAID | LOC: M ONCR 10:52 | DX: Z08 Encounter for follow-up examination after completed treatment for malignant neoplasm (principal); Z85.118 Personal history of other malignant neoplasm of bronchus and lung; Z82.3 Family history of stroke | CPT/HCPCS: G0463 ==

== ENCOUNTER → 2018-08-23 | Outpatient (CLI) | payer MEDICARE, MEDICAID | LOC: M RAD 14:40 | DX: C34.92 Malignant neoplasm of unspecified part of left bronchus or lung (principal); J01.00 Acute maxillary sinusitis, unspecified; I73.9 Peripheral vascular disease, unspecified; R53.1 Weakness; R26.2 Difficulty in walking, not elsewhere classified | CPT/HCPCS: 70551 ==

== ENCOUNTER → 2018-09-20 | Outpatient (CLI) | payer MEDICARE, MEDICAID ==
[~2018-09-20] MED LIST changes: +ALEN10TA2 PO; +CRES5TAB PO; +DICL13PA TD; +DIPH1POW6 XX; +FLUC10TA PO; +METH750T PO; +MULTCAP PO; +MURO5OIN OU; +NEXI40CA PO; +OXYC1TAB23 PO; -PROHANCE 279.3MG/ML 5ML VIAL (A9576) As Ordered; +REFR1DRO OU; +SILV-4 TOP; +TRIA1CR TOP; +WELLTAB38 PO
--- NOTE | 2018-09-20 14:52 | REP ---
LEFT FOOT, FOUR VIEWS: HISTORY: Pain. The patient is status post amputation of the tuft of the distal phalange of the 1st digit. There is no acute fracture or dislocation. There is narrowing of the 1st metatarsophalangeal joint space. The remaining joint spaces are normal in appearance. IMPRESSION: There is no acute fracture or dislocation. Electronically Signed by Winston Connolly MD 09/20/2018 02:55 P
--- NOTE | 2018-09-20 14:58 | REP ---
Left ankle series: Four views. History: Acute left ankle pain. Comparison left foot radiographs are from this date. Findings: There is diffuse osteopenia. Anterolateral soft tissue swelling is seen. There is a avulsion chip fracture visible on oblique radiograph of the ankle from the anterolateral aspect of the tibia. No other fractures seen. Impression: Anterolateral tibial avulsion fracture. Electronically Signed by Adeel Morgan MD 09/20/2018 04:58 P
--- NOTE | 2018-09-20 14:59 | REP ---
Left knee series: Six views. History: Acute pain in the left knee. Findings: Multiple views of the left knee demonstrate diffuse osteopenia. There is some vascular calcification. There is no evidence of fracture. Chondrocalcinosis is noted. No evidence of joint effusion. Impression: Chondrocalcinosis and diffuse osteoporosis. No acute bony abnormality. Electronically Signed by Adeel Morgan MD 09/20/2018 02:50 P
== END ==
LOC: M LRY 14:08
PROVIDERS: ATTEND Nurse Practitioner Family
DX: S82.302A Unspecified fracture of lower end of left tibia, initial encounter for closed fracture (principal); M85.872 Other specified disorders of bone density and structure, left ankle and foot; M79.89 Other specified soft tissue disorders; M11.262 Other chondrocalcinosis, left knee; M81.0 Age-related osteoporosis without current pathological fracture; M25.572 Pain in left ankle and joints of left foot; M79.672 Pain in left foot; M25.562 Pain in left knee; W19.XXXA Unspecified fall, initial encounter; Y92.009 Unspecified place in unspecified non-institutional (private) residence as the place of occurrence of the external cause
CPT/HCPCS: 29515; 73564; 73610; 73630; G0463

== ENCOUNTER → 2018-09-24 | Outpatient (CLI) | payer MEDICARE, MEDICAID ==
[2018-09-24 21:06] LABS: BLOOD UREA NITROGEN 8 MG/DL (7-18); CREATININE FOR GFR 0.68 MG/DL (0.55-1.30); GLOMERULAR FILTRATION RATE > 60.0 (>39)
== END ==
LOC: M LRY 14:06
PROVIDERS: ATTEND Neurological Surgery
DX: D49.6 Neoplasm of unspecified behavior of brain (principal); Z13.89 Encounter for screening for other disorder

== ENCOUNTER 2018-12-16 11:38 | Emergency (ER) | payer MEDICARE, MEDICAID ==
[~2018-12-16] VITALS: Ht 167.6 cm; Wt 45.9 kg
[2018-12-16] MEDS ORDERED: REFR1DRO8 (11:48)
--- NOTE | 2018-12-16 12:23 | REP ---
LEFT SHOULDER, THREE VIEWS: HISTORY: Dislocation. There is no acute fracture. There is anterior dislocation of the head of the humerus. There is moderate narrowing of the acromioclavicular joint space. IMPRESSION: Anterior dislocation of the head of the humerus. Electronically Signed by Winston Connolly MD 12/16/2018 12:27 P
[2018-12-16] MEDS ORDERED: BRIM2OPD (12:42)
[2018-12-16] MEDS ORDERED: BRIM1OPD (12:42)
[2018-12-16] MEDS ORDERED: REST0.05 (12:42)
[2018-12-16] MEDS ORDERED: AZOP0.2S (12:42)
[2018-12-16] MEDS ORDERED: DEXA4TA (12:42)
[2018-12-16] MEDS ORDERED: VITA2000 (12:42)
[2018-12-16] MEDS ORDERED: ANORO (12:42)
[2018-12-16] MEDS ORDERED: OMEP20CA3 (12:42)
[2018-12-16] MEDS ORDERED: ONDANSETRON 4MG/2ML VIAL (J2405) IV ONE (13:00)
[2018-12-16] MEDS ORDERED: fentaNYL 100 MCG/2 ML INJECTION (J3010) IV ONE (13:00)
[2018-12-16 17:53] VITALS: BP 127/91
--- NOTE | 2018-12-16 19:03 | REP ---
LEFT SHOULDER, TWO VIEWS: HISTORY: Postreduction. COMPARISON: 11:54 am 12/16/2018. The patient is status-post reduction of a humeral head dislocation. There is no acute fracture or dislocation. The joint spaces are normal in appearance. IMPRESSION: The patient is status-post reduction of a humeral head dislocation. There is anatomic alignment. Electronically Signed by Winston Connolly MD 12/16/2018 07:20 P
--- NOTE | 2018-12-17 10:19 | CR ---
DATE OF CONSULTATION: 12/16/2018 DATE OF PROCEDURE: 12/16/2018 INDICATION: Left shoulder dislocation. HISTORY OF PRESENT ILLNESS: Maren is a 73-year-old female with a complicated medical history. Unfortunately, she has metastatic cancer with what I believe is a metastatic brain lesion rather than a primary brain tumor. I am under the impression that she developed left-sided hemiparesis due to the metastatic lesion rather than a procedure that she had a few months ago, which was either at targeted radiation or an actual surgery to remove that lesion. Regardless, she has no active motor function in her left arm or left leg. She recently had an ankle fracture. She has had multiple falls and then she fell a week ago and injured her left shoulder. She did not tell anyone until December 16. She then informed her that she had fallen and her shoulder looked like it was dislocated. She does have a history of a left open rotator cuff repair surgery about 15 years ago, and to be clear the patient and acknowledged she had no active shoulder motion prior to the fall a week ago. The patient interestingly has intact sensation to light touch but no sensation of pain in her left arm. For the patient's full past medical history, past surgical history, medications, allergies, social history and review of systems please see the emergency room intake form. PHYSICAL EXAMINATION: Physical exam reveals an elderly female who is cachectic. She is alert and oriented times three. Appropriate mood, pleasant affect. Cardiovascular: 2+ radial pulse. Pulmonary: Nonlabored breathing. Skin in the left shoulder reveals a healed prior rotator cuff repair incision. Musculoskeletal: The patient has severe muscle wasting diffusely. She has no active range of motion in her hand elbow or shoulder. On gross inspection there does appear to be an anterior dislocation of the glenohumeral joint. On inspection and palpation of the right shoulder, there appears to be some anterior / superior humeral head escape but no gross dislocation. The patient has painless shoulder range of motion passively. Sensation light touch axillary, median, radial, ulnar nerves intact. X-rays of the left shoulder but not an axillary reveal an anterior glenohumeral dislocation. No obvious fractures. ASSESSMENT/PLAN: Maren is a 73-year-old female with a week old left shoulder anterior dislocation. The ER physician was uncomfortable having her sedated in the ER due to her chronic obstructive pulmonary disease (COPD) and poor medical status. My initial plan was to bring her to the operating room for closed reduction. However, after discussing with the patient that she did not have any pain in the arm, I asked for permission a do closed reduction in the ER and she agreed. The risks and benefits of a closed reduction of the left shoulder were discussed with her and written informed consent was obtained. PROCEDURE: No anesthesia was required. The patient's medical record number, name and date of were confirmed. Then a time-out. I then applied some gentle counter traction to the upper arm, taking great care as she does have fragile skin and then primarily manually applied an anterior to posterior vector to the humeral head and the humeral head was noted to be freely mobile. I was able to subluxate and reduce the humeral head at will and the patient had no pain. There is no clunking. With the shoulder successfully reduced, I then had portable x-ray obtained. I held for an axillary view and this confirmed a concentric glenohumeral dislocation. This completed the procedure. I explained to the patient and that she likely has a retear of her prior rotator cuff repair and that she has an unstable shoulder but there are no surgical options at this point. She has no active motor function in that arm. She did inform me that her radiation oncologist thought that there was a chance she could recover some use of the arm in the future and if that were the case she may benefit from being in a sling for 2 weeks to allow some of soft tissues to scar in but ultimately whether it redislocates or not it is unlikely to have a large impact on her function in the absence of any active motion. The patient and understand this and they were glad we could do this in the ER as opposed to in the OR. The patient was provided with a sling. I only want her using it for 2 weeks. She does not need to use it at all times. She already scheduled a followup in my office for followup on an ankle fracture. We can discuss the shoulder at that time. If she wants to be seen earlier for the shoulder, we would be happy to accommodate her. All questions were answered. She agrees with the plan.
== END 2018-12-16 18:14 | disposition home or self-care (01) ==
LOC: M ED 11:38
DX: S43.005A Unspecified dislocation of left shoulder joint, initial encounter (principal); W19.XXXA Unspecified fall, initial encounter; Y92.019 Unspecified place in single-family (private) house as the place of occurrence of the external cause
CPT/HCPCS: 23650; 73030; 96374; 96375; 99284; J3010

== ENCOUNTER → 2019-01-01 | Outpatient (CLI) | payer MEDICARE, MEDICAID ==
[~2019-01-01] MED LIST changes: +ANORO; +AZOP0.2S; +BRIM1OPD; +BRIM2OPD; +DEXA4TA; +OMEP20CA3; +REFR1DRO8; +REST0.05; +VITA2000
--- NOTE | 2019-01-02 14:38 | RADONC ---
RADIATION ONCOLOGY FOLLOWUP NOTE DATE OF SERVICE: 01/01/2019 CHART NUMBER: [id number] DIAGNOSIS: Left lung cancer. STAGE: Stage II A, O1aN7P4. ECOG PERFORMANCE STATUS: 4. FOLLOWUP NOTE: Ms. Devlin is a very pleasant 73-year-old white female with the diagnosis of metastatic well-differentiated adenocarcinoma of the left upper lobe who is presenting to us today for followup visit 1 year and 10 months post completion of external beam radiation therapy to her lung. Since the patient was seen by us, she underwent gamma knife radiosurgery for a brain metastasis in [place]. We received a phone call from the patient's physician in [place] asking if she could have her routine follow-ups done here. They have recommended an MRI be undertaken in approximately 2 to 3 months. She was just seen down there a few days ago. In addition, the patient is continuing her followup with Dr. Karen Gonzalez in [place] every 3 months. Her primary care doctor is seeing her as well. The patient's review of systems at this time is positive for paralysis of her left side, both her arm and her leg. She is having no new significant pain but continues to have some pain over her rib cage, which is largely unchanged. The patient's review of systems is otherwise positive, of course, for her physical limitations. She denies nausea, vomiting, fevers, chills, night sweats, diplopia, headaches, anxiety or depression, anorexia, urinary or bowel difficulties. PHYSICAL EXAMINATION The patient is presenting to me in a wheelchair. HEENT: Normocephalic, atraumatic. Extraocular movements are intact. There is no palpable cervical, supraclavicular, infraclavicular or axillary lymphadenopathy present. Lungs are clear to auscultation and percussion. Heart has regular rate and rhythm. She is paralyzed on the left side. ASSESSMENT: I am very familiar with this patient and we are more than glad to see her here in followup and order routine MRIs every 3 months or so. I have set her up for a followup visit in our office in three months' time. In addition, the patient will continue her followup with her medical oncologist, as well as Dr. Fernandes, her primary care doctor. The patient has been instructed to contact me if she has any new symptoms or any problems whatsoever. She has not only my office number by my cell phone number and we are available to her at anytime. Considering her difficulty with mobility and transportation, I will not drag her in here more frequently than is necessary at this point. Thank you for allowing us to participate in the care of this very pleasant woman. I will keep you informed of any developments as they occur. As always, warm regards, Jose Diaz MD cc: MD Flaco Gurrola MD Brogan Schoeneman,
== END ==
LOC: M ONCR 10:55
PROVIDERS: ATTEND Radiology Radiation Oncology
DX: C34.32 Malignant neoplasm of lower lobe, left bronchus or lung (principal)

== ENCOUNTER → 2019-01-01 | Outpatient (CLI) | payer MEDICAID, MEDICARE ==
--- NOTE | 2019-01-01 14:09 | REP ---
Clinical: Cough and shortness of breath. Technique: PA and lateral. Comparison: 05/01/2018. Findings: Mediastinum and cardiac silhouette are stable and within normal limits. Diffuse chronic interstitial changes are appreciated. Mild right basilar atelectasis is suggested. No effusion. No pneumothorax. Skeletal structures demonstrate osteopenia and degenerative changes. Impression: Chronic changes with superimposed right basilar atelectasis. Electronically Signed by Norris Licea MD 01/01/2019 02:01 P
== END ==
LOC: M LAB 11:39
PROVIDERS: ATTEND Family Medicine
DX: J98.11 Atelectasis (principal); R91.8 Other nonspecific abnormal finding of lung field; R06.02 Shortness of breath

== ENCOUNTER → 2019-01-28 | Outpatient (CLI) | payer MEDICARE, MEDICAID ==
[~2019-01-28] MED LIST changes: +TRIA0.1C60 TOP; -TRIA1CR TOP
[2019-01-28 13:23] LABS: BLOOD UREA NITROGEN 13 MG/DL (7-18); CREATININE FOR GFR 0.42 MG/DL (0.55-1.30); GLOMERULAR FILTRATION RATE > 60.0 (>39)
== END ==
LOC: M LAB 12:13
PROVIDERS: ATTEND Radiology Radiation Oncology
DX: C34.90 Malignant neoplasm of unspecified part of unspecified bronchus or lung (principal)

== ENCOUNTER → 2019-02-04 | Outpatient (CLI) | payer MEDICARE, MEDICAID ==
[~2019-02-04] MED LIST changes: +PROHANCE 279.3MG/ML 5ML VIAL (A9576) As Ordered ONE
--- NOTE | 2019-02-04 12:42 | REP ---
MR BRAIN WITHOUT AND WITH CONTRAST: HISTORY: Lung carcinoma. CONTRAST: ProHance 9 mL. COMPARISON: 08/23/2018. A mixed signal intensity mass on T1- and T2-weighted images is present in the right thalamus. The mass contains chronic hemorrhagic components. There is ring-enhancement with contrast. The mass measures 2.2 cm in transverse x 1.5 cm in AP x 2 cm in cephalocaudal dimensions. The mass is slightly increased in size compared to the previous study. A small amount of surrounding edema is present. This is decreased compared to the previous study. There is no midline shift. Areas of increased signal intensity on T2-weighted images are present in the periventricular white matter and hermila. This represent small vessel ischemic disease. There is no acute intraparenchymal hemorrhage, infarct or midline shift. The ventricular system and cortical sulci are dilated consistent with mild volume loss. There is no extracerebral collection. Mucosal thickening is present in the right maxillary sinus. IMPRESSION: 1. There has been a slight increase in size of the hemorrhagic metastasis present in the right thalamus. A small amount of surrounding edema is present that is decreased compared to the previous study. There is no midline shift. 2. Small vessel ischemic disease. 3. Mild volume loss. Electronically Signed by Winston Connolly MD 02/04/2019 01:01 P
== END ==
LOC: M RAD 09:53
PROVIDERS: ATTEND Radiology Radiation Oncology
DX: C79.31 Secondary malignant neoplasm of brain (principal); I67.82 Cerebral ischemia; M19.072 Primary osteoarthritis, left ankle and foot; M25.572 Pain in left ankle and joints of left foot; M79.672 Pain in left foot
CPT/HCPCS: 70553; 73610; 73630; A9576

== ENCOUNTER → 2019-02-04 | Outpatient (CLI) | payer MEDICARE, MEDICAID ==
[~2019-02-04] MED LIST changes: -PROHANCE 279.3MG/ML 5ML VIAL (A9576) As Ordered ONE
--- NOTE | 2019-02-04 14:05 | REP ---
LEFT ANKLE, THREE VIEWS: HISTORY: Pain. COMPARISON: 09/20/2018 There is no acute fracture or dislocation. The joint space is normal in appearance. Soft tissue swelling is present. IMPRESSION: There is no acute fracture or dislocation. Electronically Signed by Winston Connolly MD 02/04/2019 02:16 P
--- NOTE | 2019-02-04 14:22 | REP ---
LEFT FOOT, THREE VIEWS: HISTORY: Pain. The patient is status post amputation of the tuft of the distal phalange of the 1st digit. There is no acute fracture or dislocation. There is narrowing of the 1st metatarsophalangeal joint space. The remaining joint spaces are normal in appearance. IMPRESSION: Degenerative change as described above. Electronically Signed by Winston Connolly MD 02/04/2019 02:26 P
== END ==
LOC: M RAD 11:43
PROVIDERS: ATTEND Family Medicine
DX: M19.072 Primary osteoarthritis, left ankle and foot (principal); M25.572 Pain in left ankle and joints of left foot; M79.672 Pain in left foot

== ENCOUNTER 2019-02-09 13:46 | Emergency (ER) | payer MEDICARE, MEDICAID ==
[~2019-02-09] VITALS: Ht 167.6 cm; Wt 45.5 kg
[2019-02-09] MEDS ORDERED: PROAAER10 INH (14:37)
[2019-02-09] MEDS ORDERED: TRAM1CAP15 PO (14:37)
[2019-02-09] MEDS ORDERED: AZEL0.05 OU (14:37)
[2019-02-09] MEDS ORDERED: D32000CA PO (14:37)
[2019-02-09] MEDS ORDERED: ANOR1AER PO (14:37)
[2019-02-09] MEDS ORDERED: traMADol 50 MG TAB PO ONE (15:30)
[2019-02-09 16:35] VITALS: BP 102/56
== END 2019-02-09 16:37 | disposition home or self-care (01) ==
LOC: M ED 13:46
DX: L89.320 Pressure ulcer of left buttock, unstageable (principal); C34.90 Malignant neoplasm of unspecified part of unspecified bronchus or lung; C71.9 Malignant neoplasm of brain, unspecified; Z79.899 Other long term (current) drug therapy; Z88.5 Allergy status to narcotic agent; Z88.8 Allergy status to other drugs, medicaments and biological substances; Z91.040 Latex allergy status; Z87.891 Personal history of nicotine dependence

== ENCOUNTER → 2019-03-26 | Outpatient (CLI) | payer MEDICARE, MEDICAID ==
[~2019-03-26] MED LIST changes: +ANOR1AER PO; +AZEL0.05 OU; +D32000CA PO; +PROAAER10 INH; +TRAM1CAP15 PO
--- NOTE | 2019-03-28 07:50 | RADONC ---
RADIATION ONCOLOGY FOLLOWUP NOTE: DATE OF SERVICE: 03/26/2019 CHART NUMBER: [id number] DIAGNOSIS: Left lung cancer. STAGE: II A, T2b, N0, M0, ECOG PERFORMANCE STATUS: 4. Ms. 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 The patient has been followed and managed by her outside physicians at [facility] for her brain metastasis and her medical oncologist in [place] for her overall disease management. Apparently, at this point the patient is complaining of difficulty with transportation and other issues and wishes to have her management be centralized through our office. She is now presenting asking if I could follow her closely for that purpose. REVIEW OF SYSTEMS: The patient's review of systems is positive for her new paralysis of her left side. She is presenting in a wheelchair. Other than that her review of systems is basically noncontributory. She says she is having no pain at this time. She is having no breathing difficulties at this time. She reports that her pneumonia has resolved and she is having no shortness of breath. Her review of systems is noncontributory except for the neurological problems. She denies nausea, vomiting, fevers, chills, night sweats, diplopia, headaches, anxiety or depression, anorexia, weight loss, visual disturbances, chest pain, urinary or bowel difficulties, bone pain, or neurological problems. PHYSICAL EXAMINATION: The patient is a chronically ill-appearing white female in no acute distress who is presenting in a wheelchair. HEENT: Exam is normocephalic, atraumatic. Extraocular movements are intact. There is no palpable cervical, supraclavicular, infraclavicular, axillary or inguinal lymphadenopathy present. Lungs are clear to auscultation and percussion. Heart has regular rate and rhythm. She is in a wheelchair with paralysis of her left side. There is no tenderness over her bony skeleton to pressure percussion. ASSESSMENT: The patient is clinically stable at this point. She has not had recent CT scans and I have therefore schedule new CT scans of the chest, abdomen and pelvis. She is complaining of some low back pain, however. Upon further questioning I have ordered a bone scan to evaluate that. I have scheduled the patient to see me again in 1 month for further followup. At this time, her recent MRIs showed slight progression of her brain metastasis over a 5-6- months period. This is causing her no problems at the present time and we will continue to follow her for that and refer her back to her radiation oncologists at [facility] if she wishes to seek any subsequent treatment. cc: MD Flaco Gurrola MD Brogan Schoeneman, DO
== END ==
LOC: M ONCR 11:01
PROVIDERS: ATTEND Radiology Radiation Oncology
DX: C34.32 Malignant neoplasm of lower lobe, left bronchus or lung (principal); Z92.3 Personal history of irradiation

== ENCOUNTER → 2019-04-18 | Outpatient (CLI) | payer MEDICARE, MEDICAID ==
[~2019-04-18] MED LIST changes: +ALPR0.25 PO; +AZIT500T2 PO; +AZOP0.2S OS; +BETA0.5S9 OS; +BRIM2OPD OD; +BRIM2OPD OS; +CEFD1CAP8 PO; -DEXA4TA; +DEXA4TA PO; +FURO20TA2 PO; -OMEP20CA3; +OMEP20CA4; +OMEP20TA9 PO; +PHARMACY COMMENT; -REFR1DRO8; +REFR1DRO8 OU; +SILV1CRE60 TOP; +SPIR1CAP; +TRAM50TA2 PO; +[UNRECOGNIZED DRUG - CODE]
--- NOTE | 2019-04-18 15:20 | REP ---
WHOLE BODY RADIONUCLIDE BONE SCAN: HISTORY: Back pain. Comparison bone scan is from December 18, 2017. There is a history of lung carcinoma. Comparison is also made with today's chest CT. TECHNIQUE: 21.2 mCi technetium 99m MDP is injected and standard whole body bone scan imaging was acquired. SCINTIGRAPHIC FINDINGS: There is a horizontal band-like area of increased uptake today across the superior endplate of the L1 vertebral body consistent with a recent osteoporotic wedge compression fracture deformity. This corresponds with findings on today's CT study. There is uptake in bilateral kidneys. Photopenia is seen in the left hip region consistent with left hip prosthesis. There are multiple new foci of increased uptake in the anterior rib cage. On the left these involve the anterior left 1st, 2nd and 7th ribs. On the right, these involve the 3rd, 4th, and 5th ribs. The anterior rib lesions on the right are linearly opposed consistent with fractures. Indeed, on review of today's chest CT study there are fractures at each of the rib foci and no bony destructive lesion is seen. There is diffuse osteoporosis. On whole body images, there is motion artifact at the level of the head and neck. An equivocal focus projects on the left mandible. This is not seen on the planar views and is of doubtful significance. IMPRESSION: Multiple foci of new rib uptake consistent with multiple bilateral rib fractures. There is a band-like area of increased uptake in the superior endplate of L1 consistent with osteoporotic L1 compression fracture. No definite evidence of metastatic disease. Electronically Signed by Adeel Morgan MD 04/18/2019 08:19 P
== END ==
LOC: M RAD 09:31
PROVIDERS: ATTEND Radiology Radiation Oncology
DX: C34.90 Malignant neoplasm of unspecified part of unspecified bronchus or lung (principal); M54.9 Dorsalgia, unspecified

== ENCOUNTER 2019-04-21 11:49 | Inpatient (IN) | payer MEDICARE, MEDICAID ==
[~2019-04-21] VITALS: Ht 170.2 cm; Wt 50.0 kg
[~2019-04-21 11:49] MED LIST changes: -ALPR0.25 PO; -AZIT500T2 PO; -AZOP0.2S OS; -BETA0.5S9 OS; -BRIM2OPD OD; -BRIM2OPD OS; -CEFD1CAP8 PO; -FURO20TA2 PO; -OMEP20TA9 PO; -PHARMACY COMMENT; -SILV1CRE60 TOP; -SPIR1CAP; -TRAM50TA2 PO; -[UNRECOGNIZED DRUG - CODE]
[2019-04-21] MEDS ORDERED: ALPR0.25 PO (12:13)
[2019-04-21] MEDS ORDERED: SPIR1CAP (12:13)
[2019-04-21] MEDS ORDERED: [UNRECOGNIZED DRUG - CODE] (12:13)
[2019-04-21] MEDS ORDERED: methylPREDNISolone INJ 125 MG/2 ML VIAL (J2930) IV ONE (12:30)
[2019-04-21] MEDS ORDERED: IPRATROPIUM 0.5MG/ALBUTEROL 2.5MG INH SOL UD 3ML (DUONEB)(J7620) NEB ONE (12:30)
[2019-04-21 12:47] LABS: ABG BASE EXCESS 0.8 (-2.0-2.0); ABG HCO3 24.2 MEQ/L (22.0-26.0); ABG O2 SATURATION 90.7 % (95.0-99.0); ABG PARTIAL PRESSURE CO2 34.7 mmHg (35.0-45.0); ABG PARTIAL PRESSURE O2 57.4 mmHg (75.0-100.0); ABG STANDARD HCO3 25.1 MEQ/L (22.0-26.0); ABG TOTAL CO2 25.2 MEQ/L (23.0-31.0); ABG pH (ARTERIAL) 7.461 UNITS (7.350-7.450)
[2019-04-21 12:59] LABS: HEMATOCRIT 38.4 % (36.0-47.0); HEMOGLOBIN 12.7 g/dl (12.0-15.5); MEAN CORPUSCULAR HEMOGLOBIN 30.8 pg (27.0-33.0); MEAN CORPUSCULAR HGB CONC 33.1 g/dl (32.0-36.5); PLATELET COUNT, AUTOMATED 346 10^3/uL (150-450); RED BLOOD COUNT 4.13 10^6/uL (4.00-5.40); WHITE BLOOD COUNT 26.3 10^3/uL (4.0-10.0)
[2019-04-21 13:27] LABS: ALBUMIN 2.6 GM/DL (3.2-5.2); ALT/SGPT 32 U/L (12-78); BILIRUBIN,DIRECT 0.1 MG/DL (0.0-0.2); BILIRUBIN,TOTAL 0.4 MG/DL (0.2-1.0); BLOOD UREA NITROGEN 14 MG/DL (7-18); CALCIUM LEVEL 9.1 MG/DL (8.8-10.2); CARBON DIOXIDE LEVEL 23 MEQ/L (21-32); CHLORIDE LEVEL 100 MEQ/L (98-107); CK-MB VALUE MASS 1.2 NG/ML (<3.6); CPK CREATINE PHOSPHOKINASE 21 U/L (26-192); CREATININE FOR GFR 0.45 MG/DL (0.55-1.30); GLOMERULAR FILTRATION RATE > 60.0 (>39); GLUCOSE, FASTING 137 MG/DL (70-100); MB/CK RELATIVE INDEX 5.71 (< OR =4); SODIUM LEVEL 137 MEQ/L (136-145); THYROID STIMULATING HORMONE 0.575 uIU/ML (0.358-3.740); TOTAL PROTEIN 5.9 GM/DL (6.4-8.2); TROPONIN I < 0.02 NG/ML (< 0.10)
[2019-04-21 13:29] LABS: LYMPHOCYTES 3 % (16-52); METAMYELOCYTES 2 % (0-0); NEUTROPHILS 93 % (35-75)
[2019-04-21 13:30] LABS: PLATELET ESTIMATE NORMAL (NORMAL)
--- NOTE | 2019-04-21 13:51 | REP ---
Portable chest, 12:56 p.m., single AP view with the patient semi upright: Comparison is 01/01/2019. Lung lester are hyperinflated. This is unchanged. There are bulla bilaterally. This is unchanged. There are no focal infiltrates or pleural effusions. There are no masses. Cardiac size is normal. The kaleigh, mediastinum, skeletal structures are unremarkable. Impression: Findings are compatible with COPD, however, require clinical confirmation. There are no acute cardiopulmonary findings. Electronically Signed by Jose Em MD 04/21/2019 01:03 P
[2019-04-21] MEDS ORDERED: ISOVUE-370 76% 100ML VIAL (Q9967) As Ordered ONE (14:09)
[2019-04-21] MEDS ORDERED: traMADol 50 MG TAB PO ONE (14:45)
--- NOTE | 2019-04-21 15:01 | REP ---
CT of the chest with IV contrast: Comparisons are 12/18/2017, 08/22/2017 and 04/28/2014. The study is performed with the pulmonary embolus protocol. There are no emboli in the pulmonary trunk or central pulmonary arteries. There are no emboli in the pulmonary lobe or segment branches. There is a small left pleural effusion as an interval change. There is an infiltrate in the deep inferior posterior sulcus of the right lower lobe as an interval change. There is a small right pleural effusion as an interval change. There is a focal zone of atelectasis posteriorly in the right middle lobe along the anterior margin of the major fissure. There is a focal zone of parenchymal scarring medially in the left lower lobe accompanied by bulla, unchanged. There are bulla throughout the lung lester bilaterally as previously. There are no other masses or nodules. Thoracic aorta is unremarkable. Cardiac size normal. No pericardial effusion. The upper abdomen there is no adrenal mass. The visualized hepatic, pancreatic and splenic parenchyma are unremarkable. Impression: There are no pulmonary emboli. There are small bilateral pleural effusions. There is infiltrate in the deep posterior sulcus of the right lower lobe. There is focal atelectasis in the right middle lobe. There are numerous bulla bilaterally. There is a focal zone of parenchymal scarring accompanied by a bulla medially in the left lower lobe. Numerous bulla bilaterally. Electronically Signed by Jose Em MD 04/21/2019 02:52 P
[2019-04-21] MEDS ORDERED: cefTRIAXone SOD 2 GM in D5W MINI-BAG PLUS 50 ML IV ONE (15:15)
[2019-04-21] MEDS ORDERED: AZITHROMYCIN INJ 500 MG, VIAL MATE ADAPTER 1 EACH in D5W 250 ML IV ONE (15:15)
[2019-04-21] MEDS ORDERED: OMEP20TA9 PO (16:23)
[2019-04-21] MEDS ORDERED: AZOP0.2S OS (16:23)
[2019-04-21] MEDS ORDERED: TRAM50TA2 PO (16:27)
[2019-04-21] MEDS ORDERED: SILV1CRE60 TOP (16:27)
[2019-04-21] MEDS ORDERED: BRIM2OPD OD (16:27)
[2019-04-21] MEDS ORDERED: BRIM2OPD OS (16:27)
[2019-04-21] MEDS ORDERED: BETA0.5S9 OS (16:28)
[2019-04-21] MEDS ORDERED: FURO20TA2 PO (16:30)
[2019-04-21] MEDS ORDERED: PHARMACY COMMENT (16:38)
[2019-04-21] MEDS ORDERED: POLYVINYL ALCOHOL OPHTH SOLN 15 ML(LIQUITEARS) OU PRN (17:15)
[2019-04-21] MEDS ORDERED: DICLOFENAC EPOLAMINE 1.3 % PATCH TD PRN (17:15)
[2019-04-21] MEDS ORDERED: ALPRAZolam 0.25 MG TAB PO PRN (17:15)
[2019-04-21] MEDS ORDERED: ACETAMINOPHEN TAB 650MG DOSE (2X325MG) PO PRN (17:30)
[2019-04-21] MEDS ORDERED: ONDANSETRON 4MG/2ML VIAL (J2405) IV PRN (17:30)
[2019-04-21] MEDS ORDERED: PILL CUTTER 1 EACH XX PRN (17:45)
--- NOTE | 2019-04-21 18:11 | HPEPDOC ---
General Date of Admission 04/21/2019 Date of Service: Apr 21, 2019 Chief Complaint The patient is a 73-year-old female admitted with a reason for visit of Weakness/Sob. Source: Patient Exam Limitations: No limitations Timing/Duration: 24 hours Severity: Moderate Associated Symptoms: Chills, Shortness of breath History of Present Illness This is a 73-year-old female with a known history of chronic hypoxic respiratory failure due to oxygen dependent COPD. She also has lung carcinoma with metastatic disease to the brain and other areas. Her baseline FiO2 is 2 L/m. She has been developing chills and sweats. She also notes back pain over the past week. She developed difficulty breathing describes herself as becoming "stressed" and then had more difficulty breathing. She was brought to the emergency room by her . She states pain medications received in the emergency room made her feel better. O2 sats were as low as 87% on her oxygen; she increase her FiO2 to 4 L/m. She is maintained a good appetite. She's not had any remarkable cough or reflux symptoms. She's had no bowel or bladder symptoms. She was noted to have edema to her left lower extremity. She states this is chronic. Home Medications Scheduled Azelastine HCl (Azelastine HCl) 0.05% 6ML Drops, 1 DROP OU BID, (Reported) Betaxolol Hcl (Betaxolol HCl) 0.5% 5ML Drops, 1 DROP OS ASDIRECTED, (Reported) ONLY WITH PUNCTAL OCCULSION DIRECTED Brimonidine Tartrate (Brimonidine Tartrate) 0.15% 5ML Drops, 1 DROP OD BID, (Reported) Brimonidine Tartrate (Brimonidine Tartrate) 0.15% 5ML Drops, 1 DROP OS TID, (Reported) Brinzolamide (Azopt) 1% 10ML Drops.susp, 1 DROP OS TID, (Reported) Cholecalciferol (Vitamin D3) (Vitamin D3) 2,000 Unit Capsule, 2,000 MG PO DAILY, (Reported) Dexamethasone (Dexamethasone) 4 Mg Tab, 4 MG PO BID, (Reported) Furosemide (Furosemide) 20 Mg Tablet, 20 MG PO DAILY, (Reported) Omeprazole (Omeprazole) 20 Mg Tablet.dr, 20 MG PO DAILY, (Reported) Polyvinyl Alcohol/Povidone/Pf (Refresh Classic Eye Drops) 1 Ea Veronique, 1 DROP OU QID, (Reported) Silver Sulfadiazine (Silvadene) 20 Gm Cream..g., 1 APLCT TOP BID, (Reported) APPLIES TO BACK OF ARMS Umeclidinium Brm/Vilanterol Tr (Anoro Ellipta 62.5-25 Mcg INH) 1 Each Blst.w.dev, 1 PUFF PO DAILY, (Reported) Scheduled PRN Albuterol Sulfate (Proair Hfa) 8.5 Gm Hfa.aer.ad, 1 PUFF INH Q4H PRN for SHORTNESS OF BREATH, (Reported) Alprazolam (Alprazolam) 0.25 Mg Tablet, 0.25 MG PO BID PRN for ANXIETY, (Reported) Diclofenac Epolamine (Flector) 1 Patch Tdsy, 1 PATCH TD BID PRN for PAIN, (Reported) PATIENT STATES SHE APPLIES TO LOWER BACK/HIPS. THIS HAS NOT BEEN FILLED AT THE PHARMACY FAR BACK 2018. Tramadol HCl (Tramadol HCl) 50 Mg Tablet, 25 MG PO BID PRN for PAIN, (Reported) Miscellaneous Medications [Pharmacy Comment] , (Reported) MED REC OBTAINED FROM PHARMACY Allergies Coded Allergies: amylase (Verified Allergy, Unknown, 04/21/19) latex (Verified Allergy, Unknown, hives, 04/21/19) lipase (Verified Allergy, Unknown, 04/21/19) protease (Verified Allergy, Unknown, 04/21/19) morphine (Verified Adverse Reaction, Intermediate, hallucinations, 04/21/19) Past Medical History Medical History History of lung carcinoma with brain metastases treated with radiation and chemotherapy, history of rib fractures, history of vertebral compression fractures, history of chronic respiratory failure due to oxygen dependent COPD her baseline FiO2 is 2 L/m, sacral decubitus ulcer, migraine headaches, glaucoma, degenerative joint disease, a remote history of seizures 30 years ago, pancreatic duct with neoplasm. Surgical History Surgical history includes tonsillectomy, hysterectomy, excision of left toe tumor, left total hip arthroplasty, bilateral cataract surgery, unspecified, left shoulder surgery. 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 She states she is full CODE STATUS. She has designated her and her daughter as her healthcare proxies. A-FIB/CHADSVASC A-FIB History Current/History of A-Fib/PAF?: No Current PO Anticoag Therapy: No Review of Systems Other systems Review of 10 systems is otherwise negative except as stated in the brief presentation. Physical Examination General Exam: Positive: Alert, Cooperative, Other (the patient is chronically ill appearing with a sallow complexion) Eye Exam: Positive: PERRLA, Conjunctiva & lids normal, EOMI ENT Exam: Positive: Atraumatic, Mucous membr. moist/pink, Tongue Midline, Other ENT (moderately poor dentition) Neck Exam: Positive: Supple (the patient's neck is only moderately supple. She has disc disease and movement causes pain) Chest Exam: Positive: Normal air movement, Other (the patient has some bilateral coarse breath sounds and faint wheezing.) Heart Exam: Positive: Rate Normal, Regular Rhythm, Normal S1, Normal S2; Negative: Murmurs, Rubs Telemetry: Positive: No significant arrhythmia Abdomen Exam: Positive: Normal bowel sounds, Soft; Negative: Tenderness, Hepatospenomegaly Extremity Exam: Positive: Edema (the patient has 2-3+ pitting edema to her left lower extremity. She states this is chronic.), Normal pulses Skin Exam: Positive: Other skin issue (the patient has multiple ecchymoses and excoriation wounds to her arms and her chest and the back of her neck. She sta juan scratches herself when she is nervous. Sacral decubitus ulcer is healed at this time.) Neuro Exam: Positive: Other (the patient is primarily wheelchair, lounger and bedbound. She does not ambulate due to pain.) Psych Exam: Positive: Anxiety Vital Signs Vital Signs Date Time Temp Pulse Resp B/P (MAP) Pulse Ox O2 Delivery O2 Flow Rate FiO2 04/21/19 16:00 97.8 89 22 97/60 (72) 91 Nasal Cannula 4.0 04/21/19 13:10 90 Laboratory Data Labs 24H Laboratory Tests 2 04/21/19 12:40: Blood Gas Bicarbonate Standard 25.1, Arterial Blood pH 7.461H, Arterial Blood Partial Pressure CO2 34.7L, Arterial Blood Partial Pressure O2 57.4L, Arterial Blood Total CO2 25.2, Arterial Blood HCO3 24.2, Arterial Blood Base Excess 0.8, Arterial Blood Oxygen Saturation 90.7L 04/21/19 12:41: Immature Granulocyte % (Auto) , White Blood Count 26.3H, Red Blood Count 4.13, Hemoglobin 12.7, Hematocrit 38.4, Mean Corpuscular Volume 93.0, Mean Corpuscular Hemoglobin 30.8, Mean Corpuscular Hemoglobin Concent 33.1, Red Cell Distribution Width 15.5H, Platelet Count 346, Lymphocytes # (Auto) , Nucleated Red Blood Cells % (auto) 0.0, Neutrophils 93H, Band Neutrophils 2, Lymphocytes (Manual) 3L, Metamyelocytes 2H, Platelet Estimate NORMAL, Lactic Acid Level 2.5*H 04/21/19 12:42: Anion Gap 14, Glomerular Filtration Rate > 60.0, Calcium Level 9.1, Aspartate Amino Transf (AST/SGOT) 20, Alanine Aminotransferase (ALT/SGPT) 32, Alkaline Phosphatase 107, Total Bilirubin 0.4, Direct Bilirubin 0.1, Total Creatine Kinase 21L, Creatine Kinase MB 1.2, Creatine Kinase MB Relative Index 5.71H, Troponin I < 0.02, Total Protein 5.9L, Albumin 2.6L, Albumin/Globulin Ratio 0.79L, Thyroid Stimulating Hormone (TSH) 0.575 04/21/19 17:01: CBC/BMP Laboratory Tests 04/21/19 12:41 Red Blood Count 4.13, Mean Corpuscular Volume 93.0, Mean Corpuscular Hemoglobin 30.8, Mean Corpuscular Hemoglobin Concent 33.1, Red Cell Distribution Width 15.5 H, Lymphocytes # (Auto) 04/21/19 12:42 Microbiology Microbiology 04/21/19 Blood Culture, Received Pending 04/21/19 Blood Culture, Received Pending Assessment/Plan 1. Community acquired pneumonia--she has no known exposures. Infiltrates are not readily visible on chest x-ray. On CT scan she is noted to have a mild infiltrate to the deep inferior posterior sulcus of the right lower lobe. She is also noted to have bullae, hyperinflation and scarring. Plans are to treat the patient with empiric antibiotics in the form of ceftriaxone and azithromycin. Patient is noted to have leukocytosis and elevated lactic acid; blood cultures have been obtained. 2. Acute on chronic hypoxic respiratory failure--the patient has underlying COPD exacerbated by her pneumonia. The patient has a decreased PCO2 of 57 on her blood gas. O2 sats on her baseline 2 liters per minute are down to 87%. We have increased her FiO2 to at least 4 L/m, resulting in O2 sats of 91%. She will receive systemic steroids and nebulization treatments in addition to empiric antibiotics. 3. Lung carcinoma with brain metastases--the patient continues on her underlying therapy with Decadron. She does not appear to be on any antiseizure medication. She is scheduled for upcoming test to determine the extent and progression of her disease. 4. She'll be continued on her other underlying medications for management of her chronic pain from her degenerative joint and disc disease. She states she is on a number of pain medications, but I do not see many on her list. She will also continue with medications needed for her glaucoma. She does not require acute care for her prior sacral decubitus ulcer which is healed currently. The patient is quite immobile and requires considerable assistance for mobilization/posi tioning. Family has been very good with this. The patient has been placed inpatient status as it is anticipated that her length of stay will be greater than 2 midnights. Plan / VTE VTE Prophylaxis Ordered?: Yes Plan IVF: Initiate Diet: Continue Current Activity: Bedrest Medications: Start Antibiotics, Start Steroids Respiratory: Increase Oxygen Diagnostics: Repeat Labs in AM, Obtain Cultures, CT (There is infiltrate in the deep posterior sulcus of the right lower lobe.) Anticipated Discharge: Home Advanced Directives: Health Care Proxy (HCP) (healthcare proxy is designated to be her and her daughter.) TOSHIA DAWSON MD Apr 21, 2019 18:11
[2019-04-21] MEDS: ENOXAPARIN 40 MG/0.4 ML SYRINGE (J1650) SC SCH (20:32)
[2019-04-21] MEDS: SILVER SULFADIAZINE 1% CR 50 GM JAR TOP SCH (20:33)
[2019-04-21] MEDS: IPRATROPIUM 0.5MG/ALBUTEROL 2.5MG INH SOL UD 3ML (DUONEB)(J7620) INH SCH ×2 (20:34→23:55)
--- NOTE | 2019-04-21 20:52 | ECGEPIP ---
[facility] - ED Test Date: 2019-04-21 Pat Name: NATALYA KARIMI Department: Room: - Gender: Female Custodian: CT : 1945 Requested By: JUAN AGARWAL Order Number: [id number] Reading MD: Juan Hearn Measurements Intervals [place] Rate: 113 P: NM: -1 QRS: 26 QRSD: 94 T: 76 QT: 340 QTc: 467 Interpretive Statements ATRIAL FLUTTER/TACHYCARDIA WITH RAPID VENTRICULAR RESPONSE Low QRS complex voltage in the limb leads Nonspecific ST-T wave abnormalities Comparison tracing not on file Electronically Signed on 04-21-2019 20:51:41 EDT by Juan Hearn
[2019-04-21] MEDS: BRIMONIDINE 0.15% OPHTH SOLN 5 ML OS SCH (21:00)
[2019-04-21] MEDS: BRINZOLAMIDE 1 % OPHTH SUSP (AZOPT) 10ML OS SCH (21:00)
[2019-04-21] MEDS: BRIMONIDINE 0.15% OPHTH SOLN 5 ML OD SCH (21:00)
[2019-04-21] MEDS: traMADol 50 MG TAB PO PRN (23:02)
[2019-04-22] MEDS ORDERED: methylPREDNISolone INJ 125 MG/2 ML VIAL (J2930) IV SCH (01:00)
[2019-04-22] MEDS: traMADol 50 MG TAB PO PRN (02:54)
[2019-04-22] MEDS: IPRATROPIUM 0.5MG/ALBUTEROL 2.5MG INH SOL UD 3ML (DUONEB)(J7620) INH SCH ×5 (03:39→20:00)
[2019-04-22 06:42] LABS: HEMOGLOBIN 10.8 g/dl (12.0-15.5); MEAN CORPUSCULAR HEMOGLOBIN 30.9 pg (27.0-33.0); MEAN CORPUSCULAR HGB CONC 33.8 g/dl (32.0-36.5); MEAN CORPUSCULAR VOLUME 91.4 fl (80.0-96.0); PLATELET COUNT, AUTOMATED 297 10^3/uL (150-450); WHITE BLOOD COUNT 24.6 10^3/uL (4.0-10.0)
[2019-04-22 06:54] LABS: BLOOD UREA NITROGEN 16 MG/DL (7-18); CALCIUM LEVEL 8.5 MG/DL (8.8-10.2); CARBON DIOXIDE LEVEL 27 MEQ/L (21-32); CHLORIDE LEVEL 99 MEQ/L (98-107); CREATININE FOR GFR 0.43 MG/DL (0.55-1.30); GLOMERULAR FILTRATION RATE > 60.0 (>39); GLUCOSE, FASTING 277 MG/DL (70-100); POTASSIUM SERUM 3.7 MEQ/L (3.5-5.1); SODIUM LEVEL 135 MEQ/L (136-145)
[2019-04-22] MEDS: SILVER SULFADIAZINE 1% CR 50 GM JAR TOP SCH ×2 (08:20→20:32)
[2019-04-22] MEDS: VITAMIN D 1,000 INTERNATIONAL UNITS TABLET PO SCH (08:42)
[2019-04-22] MEDS: BRIMONIDINE 0.15% OPHTH SOLN 5 ML OD SCH ×2 (08:42→20:32)
[2019-04-22] MEDS: OMEPRAZOLE 20 MG CAP PO SCH (08:42)
[2019-04-22] MEDS: FUROSEMIDE 20 MG TAB PO SCH (08:42)
[2019-04-22] MEDS: BRIMONIDINE 0.15% OPHTH SOLN 5 ML OS SCH ×3 (08:42→20:34)
[2019-04-22] MEDS: BRINZOLAMIDE 1 % OPHTH SUSP (AZOPT) 10ML OS SCH ×3 (08:42→20:32)
--- NOTE | 2019-04-22 11:08 | IPNPDOC ---
Text Note Date of Service The patient was seen on 04/22/19. NOTE Subjective: Patient is a 73 year old female with a PMHx of COPD (O2 dependent), Lung adenocarcinoma (w/ metastasis to brain - residual L arm weakness, on chemo / will be starting radiation), Sacral decubitus ulcer, Migraine headaches, Glaucoma, Degenerative joint disease, Hx of Seizures, Pancreatic duct with neoplasm, who presented to the ER with SOB associated with chills / sweats. In the ER patient was found to have a pneumonia and hospitalist service was called for evaluation / treatment. Patient was seen and examined at the bedside. Patient reports some improvement in breathing. Still reports a productive cough. Denies any CP, palpitations. Denies any N/V, abdominal pain, C/D. Objective: Vitals (See below) General: Lying in bed, no acute distress, comfortable, Awake / Alert HEENT: NC, AT CVS: +S1S2 Lungs: Fair air entry b/l, no aprpeciable wheezing / rhonchi / rales Abdomen: Soft, ND, NT Extremities: - Edema, - Calf tenderness Assessment and plan: Shortness of breath - likely 2/2 community acquired pneumonia - Appears to be improving - Leukocytosis with slight improvement; s/p Lactic acidosis - Blood cultures pending - CTA chest 04/21: There are no pulmonary emboli. There are small bilateral pleural effusions. There is infiltrate in the deep posterior sulcus of the right lower lobe. There is focal atelectasis in the right middle lobe. There are numerous bulla bilaterally. There is a focal zone of parenchymal scarring accompanied by a bulla medially in the left lower lobe. Numerous bulla bilaterally. - c/w Ceftriaxone and Azithromycin (Day #2) Acute on Chronic hypoxic respiratory failure - likely 2/2 COPD exacerbation from PNA - Saturation of 87% on arrival to ER; low pO2 (57) on ABG on arrival - At baseline patient uses oxygen at home - Will DC Solumedrol; c/w Decadron - c/w inhaled therapy as ordered Lung adenocarcinoma (w/ metastasis to brain - residual L arm weakness, on chemo / will be starting radiation) - c/w Decadron Sacral decubitus ulcer - c/w dressing changes / positional changes Migraine headaches Glaucoma - c/w outpatient regimen Degenerative joint disease Hx of Seizures - Remote history from 30 years ago Pancreatic duct with neoplasm DVT prophylaxis - c/w Lovenox VS,Fishbone, I+O VS, Fishbone, I+O Laboratory Tests 04/21/19 12:41 Red Blood Count 4.13, Mean Corpuscular Volume 93.0, Mean Corpuscular Hemoglobin 30.8, Mean Corpuscular Hemoglobin Concent 33.1, Red Cell Distribution Width 15.5 H, Lymphocytes # (Auto) 04/21/19 12:42 04/22/19 06:03 Red Blood Count 3.50 L, Mean Corpuscular Volume 91.4, Mean Corpuscular Hemoglobin 30.9, Mean Corpuscular Hemoglobin Concent 33.8, Red Cell Distribution Width 15.1 H, Calcium Level 8.5 L Vital Signs Date Time Temp Pulse Resp B/P (MAP) Pulse Ox O2 Delivery O2 Flow Rate FiO2 04/22/19 06:40 97.4 80 20 114/68 (83) 91 Room Air 04/21/19 20:45 2.0 04/21/19 13:10 90 I&O- Last 24 Hours up to 6 AM 04/22/19 06:00 Intake Total 305 ml Balance 305 ml STEPHANIE BATES MD Apr 22, 2019 11:07
[2019-04-22 12:02] LABS: HEMOGLOBIN 10.6 g/dl (12.0-15.5); MEAN CORPUSCULAR HEMOGLOBIN 30.8 pg (27.0-33.0); MEAN CORPUSCULAR HGB CONC 32.1 g/dl (32.0-36.5); MEAN CORPUSCULAR VOLUME 95.9 fl (80.0-96.0); PLATELET COUNT, AUTOMATED 300 10^3/uL (150-450); RED BLOOD COUNT 3.44 10^6/uL (4.00-5.40); WHITE BLOOD COUNT 26.1 10^3/uL (4.0-10.0)
[2019-04-22 12:35] LABS: LYMPHOCYTES 2 % (16-52); METAMYELOCYTES 2 % (0-0); MONOCYTES 5 % (0-8); NEUTROPHILS 91 % (35-75)
[2019-04-22 12:36] LABS: ANISOCYTOSIS 1+; PLATELET ESTIMATE NORMAL (NORMAL)
[2019-04-22] MEDS ORDERED: cefTRIAXone SOD 1 GM in D5W MINI-BAG PLUS 50 ML IV SCH (15:00)
[2019-04-22] MEDS ORDERED: AZITHROMYCIN INJ 500 MG, VIAL MATE ADAPTER 1 EACH in D5W 250 ML IV SCH (16:00)
[2019-04-22] MEDS: ENOXAPARIN 40 MG/0.4 ML SYRINGE (J1650) SC SCH (20:32)
[2019-04-23] MEDS: IPRATROPIUM 0.5MG/ALBUTEROL 2.5MG INH SOL UD 3ML (DUONEB)(J7620) INH SCH ×3 (01:02→08:42)
[2019-04-23] MEDS: traMADol 50 MG TAB PO PRN (05:11)
[2019-04-23 07:10] LABS: HEMATOCRIT 31.7 % (36.0-47.0); HEMOGLOBIN 10.3 g/dl (12.0-15.5); MEAN CORPUSCULAR HEMOGLOBIN 31.2 pg (27.0-33.0); MEAN CORPUSCULAR HGB CONC 32.5 g/dl (32.0-36.5); MEAN CORPUSCULAR VOLUME 96.1 fl (80.0-96.0); PLATELET COUNT, AUTOMATED 290 10^3/uL (150-450); WHITE BLOOD COUNT 27.7 10^3/uL (4.0-10.0)
[2019-04-23 07:49] LABS: MONOCYTES 3 % (0-8); NEUTROPHILS 97 % (35-75)
[2019-04-23 07:55] LABS: ANISOCYTOSIS 1+; PLATELET ESTIMATE NORMAL (NORMAL)
[2019-04-23 08:00] VITALS: BP 109/55
[2019-04-23 08:02] LABS: BLOOD UREA NITROGEN 11 MG/DL (7-18); CALCIUM LEVEL 8.8 MG/DL (8.8-10.2); CARBON DIOXIDE LEVEL 32 MEQ/L (21-32); CHLORIDE LEVEL 98 MEQ/L (98-107); CREATININE FOR GFR 0.49 MG/DL (0.55-1.30); GLOMERULAR FILTRATION RATE > 60.0 (>39); GLUCOSE, FASTING 204 MG/DL (70-100); POTASSIUM SERUM 3.9 MEQ/L (3.5-5.1); SODIUM LEVEL 135 MEQ/L (136-145)
[2019-04-23] MEDS: FUROSEMIDE 20 MG TAB PO SCH (08:50)
[2019-04-23] MEDS: VITAMIN D 1,000 INTERNATIONAL UNITS TABLET PO SCH (08:50)
[2019-04-23] MEDS: OMEPRAZOLE 20 MG CAP PO SCH (08:50)
[2019-04-23] MEDS: BRINZOLAMIDE 1 % OPHTH SUSP (AZOPT) 10ML OS SCH (08:52)
[2019-04-23] MEDS: BRIMONIDINE 0.15% OPHTH SOLN 5 ML OD SCH (08:52)
[2019-04-23] MEDS: BRIMONIDINE 0.15% OPHTH SOLN 5 ML OS SCH (08:52)
[2019-04-23] MEDS ORDERED: PREVNAR 13 VACCINE SYRINGE (CPT CODE:90670) IM ONE (09:00)
[2019-04-23] MEDS: SILVER SULFADIAZINE 1% CR 50 GM JAR TOP SCH (09:00)
[2019-04-23 09:30] LABS: C REACTIVE PROTEIN QUANTITATIV 2.37 MG/DL (0.00-0.30)
[2019-04-23] MEDS ORDERED: AZIT500T2 PO (10:47)
[2019-04-23] MEDS ORDERED: CEFD1CAP8 PO (10:47)
--- NOTE | 2019-04-23 15:50 | DS.PDOC ---
Discharge Summary General Date of Admission Apr 21, 2019 at 17:20 Date of Discharge 04/23/2019 Discharge Summary PROCEDURES PERFORMED DURING STAY: [None]. ADMITTING DIAGNOSES / DISCHARGE DIAGNOSES: Shortness of breath - likely 2/2 community acquired pneumonia Acute on Chronic hypoxic respiratory failure - likely 2/2 COPD exacerbation from PNA Lung adenocarcinoma (w/ metastasis to brain - residual L arm / leg weakness, on chemo and radiation) Sacral decubitus ulcer Migraine headaches Glaucoma Degenerative joint disease Hx of Seizures Pancreatic duct with neoplasm DVT prophylaxis COMPLICATIONS/CHIEF COMPLAINT: Shortness of breath and productive cough HISTORY OF PRESENT ILLNESS: Patient is a 73 year old female with a PMHx of COPD (O2 dependent), Lung adenocarcinoma (w/ metastasis to brain - residual L arm weakness, on chemo / will be starting radiation), Sacral decubitus ulcer, Migraine headaches, Glaucoma, Degenerative joint disease, Hx of Seizures, Pancreatic duct with neoplasm, who presented to the ER with SOB associated with chills / sweats. In the ER patient was found to have a pneumonia and hospitalist service was called for evaluation / treatment. HOSPITAL COURSE: Shortness of breath - likely 2/2 community acquired pneumonia - Appears to be improving - Leukocytosis with slight improvement; s/p Lactic acidosis; CRP has trended down significantly - Blood cultures pending - CTA chest 04/21: There are no pulmonary emboli. There are small bilateral pleural effusions. There is infiltrate in the deep posterior sulcus of the right lower lobe. There is focal atelectasis in the right middle lobe. There are numerous bulla bilaterally. There is a focal zone of parenchymal scarring accompanied by a bulla medially in the left lower lobe. Numerous bulla bilaterally. - c/w Ceftriaxone and Azithromycin (Day #3); will complete antibiotic course as an outpatient with Ceftin year and azithromycin - Will have outpatient follow-up with Dr. 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 Diaz for continued radiation - Patient has a good support network as an outpatient. Reports that her has been taking care of her 30/04 Sacral decubitus ulcer - c/w dressing changes / positional changes Migraine headaches Glaucoma - c/w outpatient regimen Degenerative joint disease Hx of Seizures - Remote history from 30 years ago Pancreatic duct with neoplasm DVT prophylaxis - c/w Lovenox DISCHARGE MEDICATIONS: Please see below. ALLERGIES: Please see below. PHYSICAL EXAMINATION ON DISCHARGE: Vitals (See below) General: Lying in bed, no acute distress, comfortable, Awake / Alert HEENT: NC, AT CVS: +S1S2 Lungs: Fair air entry b/l, there are no signs of rhonchi, rales or wheezing Abdomen: Soft, nondistended and nontender Extremities: No evidence of lower extremity edema, - Calf tenderness LABORATORY DATA: Please see below. ACTIVITY: [As tolerated]. DISCHARGE PLAN: Follow-up with Dr. Amairani Garcia and Dr. Diaz within 7 days Remain compliant with treatment plan and medications Return to the ER if you experience any problems DISPOSITION: Home, Self-Care. DISCHARGE CONDITION: [Stable]. TIME SPENT ON DISCHARGE: 35 minutes Vital Signs/I&Os Vital Signs Date Time Temp Pulse Resp B/P (MAP) Pulse Ox O2 Delivery O2 Flow Rate FiO2 04/23/19 09:30 0.0 96 04/23/19 08:00 97.6 73 19 109/55 (73) 91 04/23/19 04:26 Nasal Cannula Laboratory Data Labs 24H Laboratory Tests 2 04/23/19 06:42: Immature Granulocyte % (Auto) , White Blood Count 27.7H, Red Blood Count 3.30L, Hemoglobin 10.3L, Hematocrit 31.7L, Mean Corpuscular Volume 96.1H, Mean Corpuscular Hemoglobin 31.2, Mean Corpuscular Hemoglobin Concent 32.5, Red Cell Distribution Width 15.0H, Platelet Count 290, Lymphocytes # (Auto) , Nucleated Red Blood Cells % (auto) 0.0, Neutrophils 97H, Monocytes (Manual) 3, Platelet Estimate NORMAL, Anisocytosis 1+, Anion Gap 5L, Glomerular Filtration Rate > 60.0, Blood Urea Nitrogen 11, Creatinine 0.49L, Sodium Level 135L, Potassium Level 3.9, Chloride Level 98, Carbon Dioxide Level 32, Calcium Level 8.8, Magnesium Level 2.0, C-Reactive Protein, Quantitative 2.37H CBC/BMP Laboratory Tests 04/23/19 06:42 Red Blood Count 3.30 L, Mean Corpuscular Volume 96.1 H, Mean Corpuscular Hemoglobin 31.2, Mean Corpuscular Hemoglobin Concent 32.5, Red Cell Distribution Width 15.0 H, Lymphocytes # (Auto) , Calcium Level 8.8 Microbiology Microbiology 04/21/19 Blood Culture - Preliminary, Resulted No Growth after 48 hours. All Specime... 04/21/19 Blood Culture - Preliminary, Resulted No Growth after 48 hours. All Specime... 04/23/19 Gram Stain - Final, Resulted 04/23/19 Sputum Culture, Resulted Pending Discharge Medications Scheduled Azelastine HCl (Azelastine HCl) 0.05% 6ML Drops, 1 DROP OU BID, (Reported) Azithromycin (Azithromycin) 500 Mg Tablet, 1 TAB PO DAILY Betaxolol Hcl (Betaxolol HCl) 0.5% 5ML Drops, 1 DROP OS ASDIRECTED, (Reported) ONLY WITH PUNCTAL OCCULSION DIRECTED Brimonidine Tartrate (Brimonidine Tartrate) 0.15% 5ML Drops, 1 DROP OD BID, (Reported) Brimonidine Tartrate (Brimonidine Tartrate) 0.15% 5ML Drops, 1 DROP OS TID, (Reported) Brinzolamide (Azopt) 1% 10ML Drops.susp, 1 DROP OS TID, (Reported) Cefdinir (Cefdinir) 300 Mg Capsule, 1 CAP PO BID Cholecalciferol (Vitamin D3) (Vitamin D3) 2,000 Unit Capsule, 2,000 MG PO DAILY, (Reported) Dexamethasone (Dexamethasone) 4 Mg Tab, 4 MG PO BID, (Reported) Furosemide (Furosemide) 20 Mg Tablet, 20 MG PO DAILY, (Reported) Omeprazole (Omeprazole) 20 Mg Tablet.dr, 20 MG PO DAILY, (Reported) Polyvinyl Alcohol/Povidone/Pf (Refresh Classic Eye Drops) 1 Ea Veronique, 1 DROP OU QID, (Reported) Silver Sulfadiazine (Silvadene) 20 Gm Cream..g., 1 APLCT TOP BID, (Reported) APPLIES TO BACK OF ARMS Umeclidinium Brm/Vilanterol Tr (Anoro Ellipta 62.5-25 Mcg INH) 1 Each Blst.w.dev, 1 PUFF PO DAILY, (Reported) Scheduled PRN Albuterol Sulfate (Proair Hfa) 8.5 Gm Hfa.aer.ad, 1 PUFF INH Q4H PRN for SHORTNESS OF BREATH, (Reported) Alprazolam (Alprazolam) 0.25 Mg Tablet, 0.25 MG PO BID PRN for ANXIETY, (Reported) Diclofenac Epolamine (Flector) 1 Patch Tdsy, 1 PATCH TD BID PRN for PAIN, (Reported) PATIENT STATES SHE APPLIES TO LOWER BACK/HIPS. THIS HAS NOT BEEN FILLED AT THE PHARMACY FAR BACK 2018. Tramadol HCl (Tramadol HCl) 50 Mg Tablet, 25 MG PO BID PRN for PAIN, (Reported) Miscellaneous Medications [Pharmacy Comment] , (Reported) MED REC OBTAINED FROM PHARMACY Allergies Coded Allergies: amylase (Verified Allergy, Unknown, 04/21/19) latex (Verified Allergy, Unknown, hives, 04/21/19) lipase (Verified Allergy, Unknown, 04/21/19) protease (Verified Allergy, Unknown, 04/21/19) morphine (Verified Adverse Reaction, Intermediate, hallucinations, 04/21/19) STEPHANIE BATES MD Apr 23, 2019 15:50
== END 2019-04-23 12:45 | disposition home or self-care (01) | DRG 193 ==
LOC: M ED 11:49 → M ED INP 17:20
PROVIDERS: ADMIT Internal Medicine; ATTEND Internal Medicine
DX: J18.9 Pneumonia, unspecified organism (principal); J96.21 Acute and chronic respiratory failure with hypoxia; C34.90 Malignant neoplasm of unspecified part of unspecified bronchus or lung; C79.31 Secondary malignant neoplasm of brain; J44.1 Chronic obstructive pulmonary disease with (acute) exacerbation; C25.9 Malignant neoplasm of pancreas, unspecified; G43.909 Migraine, unspecified, not intractable, without status migrainosus; H40.9 Unspecified glaucoma; Z99.81 Dependence on supplemental oxygen; D72.829 Elevated white blood cell count, unspecified; L89.159 Pressure ulcer of sacral region, unspecified stage; Z79.899 Other long term (current) drug therapy; Z91.040 Latex allergy status; Z88.5 Allergy status to narcotic agent; Z88.8 Allergy status to other drugs, medicaments and biological substances; M51.36 Other intervertebral disc degeneration, lumbar region